=== PATIENT | female | born 1985 | race Caucasian/White ===

== ENCOUNTER 2016-11-02 04:43 | Emergency (ER) | payer SELFPAY ==
[~2016-11-02] VITALS: Ht 182.9 cm; Wt 80.0 kg
[~2016-11-02 04:43] MED LIST: CYCL-36 PO; IBUP800 PO; PRED50TA PO
[2016-11-02 04:49] VITALS: BP 141/65; PULSE 68; RESP 18; TEMP 99.3; O2SAT 96
[2016-11-02] MEDS ORDERED: CEPHALEXIN MONOHYDRATE 500 MG CAP PO ONE (07:45)
[2016-11-02] MEDS ORDERED: SULFAMETHOXAZOLE-TRIMETHOPRIM DS 800-160 MG TAB PO ONE (07:45)
[2016-11-02] MEDS ORDERED: KETOROLAC TROMETHAMINE 30 MG/ML (IVP) VIAL IV PUSH ONE (07:45)
[2016-11-02] MEDS ORDERED: SODIUM CHLOR 0.9% 1000 ML INJ 1,000 ML IV ONE (07:45)
--- NOTE | 2016-11-02 08:25 | RADRPT ---
EXAM DATE/TIME: 11/02/2016 07:48 [facility] COMPARISON: No previous studies available for comparison. INDICATIONS : Left leg edema. MEDICAL HISTORY : . IV drug use. Tobacco use. Leg edema. SURGICAL HISTORY : None. ENCOUNTER: Initial ACUITY: 3 days PAIN SCORE: 8/10 LOCATION: Left leg. TECHNIQUE: Venous ultrasound of the leg was performed from the inguinal ligament to the proximal calf. Real-derian e, color Doppler and spectral tracing, compression and augmentation techniques were used. FINDINGS: There is normal compressibility of the deep venous system from the inguinal region to the proximal ca lf. No echogenic clot is seen in the lumen of the common femoral, femoral, popliteal, and posterior tibial veins. There is a normal response of the venous system to proximal and distal augmentation an d respiration. Several nonspecific prominent lymph nodes are noted in the left groin area. Small nonspecific hypoechoic area in the soft tissues of the left lateral calf the patient is having pain. This area measures approximately 7 mm and may represent either small amount of fluid or some fo ronan inflammation. CONCLUSION: 1. No evidence of DVT. 2. Nonspecific mildly prominent multiple lymph nodes in left groin area. 3. 7 mm nonspecific area of decreased density in the soft tissues along the calf in the region of lucio n. Probable focal inflammation versus a small amount of fluid. Marcelo Huitron MD on November 02, 2016 at 8:20 Board Certified Radiologist. This report was verified electronically.
[2016-11-02 08:35] LABS: AUTOMATED NEUTROPHIL # 2.9 TH/MM3 (1.8-7.7); BASOPHIL % 0.5 % (0.0-2.0); EOSINOPHIL # 0.2 TH/MM3 (0-0.4); HEMATOCRIT 34.1 % (35.0-46.0); HEMO FLAGS DIFF FINAL; LYMPH % 23.9 % (9.0-44.0); LYMPHOCYTE # 1.1 TH/MM3 (1.0-4.8); MEAN CELL VOLUME 88.4 FL (80.0-100.0); MEAN CORPUSCULAR HEMOGLOBIN 30.3 PG (27.0-34.0); MEAN CORPUSCULAR HGB CONC 34.3 % (32.0-36.0); MONO % 11.6 % (0.0-8.0); PLATELET COUNT 163 TH/MM3 (150-450); RED BLOOD COUNT 3.86 MIL/MM3 (4.00-5.30); RED CELL DISTRIBUTION WIDTH 12.3 % (11.6-17.2); WHITE BLOOD COUNT 4.8 TH/MM3 (4.0-11.0)
[2016-11-02 08:43] LABS: ANION GAP 8 MEQ/L (5-15); AST (GOT) 48 U/L (15-37); BICARBONATE 27.1 MEQ/L (21.0-32.0); BLOOD UREA NITROGEN 7 MG/DL (7-18); CHLORIDE 102 MEQ/L (98-107); GLOMERULAR FILTRATION RATE 91 ML/MIN (>89); POTASSIUM 3.1 MEQ/L (3.5-5.1); SODIUM (NA) 137 MEQ/L (136-145)
[2016-11-02 08:44] LABS: ALT (GPT) 59 U/L (10-53)
--- NOTE | 2016-11-02 08:46 | PD ---
HPI Chief Complaint: Edema Time Seen by Provider: 07:29 Travel History International Travel<30 days: No Contact w/Intl Traveler<30days: No Traveled to known affect area: No History of Present Illness HPI 31 year-old woman who presents to the emergency room complaining of swelling in her legs. She was recently in group home. She is wearing heavy work boots. She developed ulcerations and abrasions on her feet. She felt her from the work boots. At the beginning of November, October she developed more painful sores on especially her right foot and right foot swelling. She took antibiotics for a couple days before leaving group home. These improved. She's had worsening left foot pain swelling and ulcerations and then over the past several days has developed worsening left pain swelling on her calf and leg itself. No fevers or chills. No night sweats. She has a history of IV drug use last used about 3 days ago. She also complains of small pustular skin wounds scattered over other areas of her body as well including her trunk chest and upper extremities. History Past Medical History Narrative Medical Active IV drug use Tetanus Vaccination: < 5 Years Influenza Vaccination: No LMP: 10/27/2016 Menopausal: No : 0 Past Surgical History Surgical History: No Previous Surgery Social History Alcohol Use: Yes (OCC.) Tobacco Use: Yes (3/4 PPD) Allergies-Medications (Allergen,Severity, Reaction): Coded Allergies: No Known Allergies (Unverified , 12/08/15) Reported Meds & Prescriptions Reported Meds & Active Scripts Active No Active Prescriptions or Reported Medications Review of Systems Except as stated in HPI: all other systems reviewed are Neg Physical Exam Narrative GENERAL: Well-appearing 31 year-old woman, appears uncomfortable, nontoxic. SKIN: Focused skin assessment warm/dry. Scattered pustular lesions a small rims of erythema. On the legs are several areas especially in the lateral foot larger areas of ulceration about a centimeter or so with some minimal surrounding erythema. There is more generalized erythema to the foot as well with some tenderness and swelling. This tenderness extends up into the calf. There is minimal swelling but there is some appreciable asymmetry between the left and right leg. HEAD: Atraumatic. Normocephalic. EYES: Pupils equal and round. No scleral icterus. No injection or drainage. ENT: No nasal bleeding or discharge. Mucous membranes pink and moist. NECK: Trachea midline. No JVD. CARDIOVASCULAR: Regular rate and rhythm. No murmur. RESPIRATORY: No accessory muscle use. Clear to auscultation. Breath sounds equal bilaterally. GASTROINTESTINAL: Abdomen soft, non-tender, nondistended. Hepatic and splenic margins not palpable. MUSCULOSKELETAL: No obvious deformities. Some edema to the left leg as noted above. NEUROLOGICAL: Awake and alert. No obvious cranial nerve deficits. Motor grossly within normal limits. Normal speech. Data Data Last Documented VS Vital Signs Date Time Temp Pulse Resp B/P (MAP) Pulse Ox O2 Delivery O2 Flow Rate FiO2 11/02/16 04:49 99.3 68 18 141/65 (90) 96 Orders Orders Complete Blood Count With Diff (11/02/16 07:37) Comprehensive Metabolic Panel (11/02/16 07:37) Iv Access Insert/Monitor (11/02/16 07:37) Blood Culture (11/02/16 07:37) Us Leg Venous Doppler (11/02/16 ) Cephalexin (Keflex) (11/02/16 07:45) Sulfamet-Trimeth Ds 800-160 Mg (Bactrim (11/02/16 07:45) Ketorolac Inj (Toradol Inj) (11/02/16 07:45) Sodium Chlor 0.9% 1000 Ml Inj (Ns 1000 M (11/02/16 07:45) Labs Laboratory Tests Test 11/02/16 06:52 11/02/16 07:55 Blood Urea Nitrogen 7 MG/DL Creatinine 0.75 MG/DL Random Glucose 130 MG/DL Total Protein 7.2 GM/DL Albumin 3.6 GM/DL Calcium Level 8.6 MG/DL Alkaline Phosphatase 79 U/L Aspartate Amino Transf (AST/SGOT) 48 U/L Alanine Aminotransferase (ALT/SGPT) 59 U/L Total Bilirubin 0.8 MG/DL Sodium Level 137 MEQ/L Potassium Level 3.1 MEQ/L Chloride Level 102 MEQ/L Carbon Dioxide Level 27.1 MEQ/L Anion Gap 8 MEQ/L Estimat Glomerular Filtration Rate 91 ML/MIN White Blood Count 4.8 TH/MM3 Red Blood Count 3.86 MIL/MM3 Hemoglobin 11.7 GM/DL Hematocrit 34.1 % Mean Corpuscular Volume 88.4 FL Mean Corpuscular Hemoglobin 30.3 PG Mean Corpuscular Hemoglobin Concent 34.3 % Red Cell Distribution Width 12.3 % Platelet Count 163 TH/MM3 Mean Platelet Volume 7.7 FL Neutrophils (%) (Auto) 60.0 % Lymphocytes (%) (Auto) 23.9 % Monocytes (%) (Auto) 11.6 % Eosinophils (%) (Auto) 4.0 % Basophils (%) (Auto) 0.5 % Neutrophils # (Auto) 2.9 TH/MM3 Lymphocytes # (Auto) 1.1 TH/MM3 Monocytes # (Auto) 0.6 TH/MM3 Eosinophils # (Auto) 0.2 TH/MM3 Basophils # (Auto) 0.0 TH/MM3 CBC Comment DIFF FINAL Differential Comment MDM Medical Decision Making Medical Screen Exam Complete: Yes Emergency Medical Condition: Yes Interpretation(s) LABS: CBC is unremarkable. CMP is remarkable for mildly elevated AST and ALT Ultrasound of the left lower extremity: Negative for DVT. Prominent lymph nodes soft tissue swelling. Differential Diagnosis Infection, DVT, sialitis, systemic infection or bacteremia, other Narrative Course Medical decision making To 31 year-old woman presents emergent [place] edema and swelling in her leg. She looks otherwise well. Is mostly on the left leg at this point. She has several small skin wounds. I think she probably has a superficial skin infection and may be colonized with MRSA. I don't think that she has evidence of systemic bacteremia or endocarditis. She is a high risk with active IV drug use. We'll check blood cultures, labs, check an ultrasound to rule out DVT, and treat with antibiotics and outpatient follow-up. Diagnosis Primary Impression: Left leg cellulitis Additional Instructions: Take antibiotics as prescribed. Keep leg elevated above your heart to reduce swelling and inflammation. Return emergent arm for any worsening pain redness swelling fevers or any other new or worsening symptoms. Med/Other Pt SpecificInfo: Prescription(s) given Scripts Sulfamethoxazole-Trimethoprim (Bactrim DS) 800-160 Mg Tab 1 TAB PO BID for Infection, #20 TAB 0 Refills Prov: Liam Duffy MD 11/02/16 Cephalexin (Keflex) 500 Mg Capsule 500 MG PO TID for Infection for 10 Days, CAP 0 Refills Prov: Liam Duffy MD 11/02/16 Naproxen (Naprosyn) 500 Mg Tab 500 MG PO BID Y for PAIN SCALE 1 TO 10, #20 TAB 0 Refills Prov: Liam Duffy MD 11/02/16 Disposition: 01 DISCHARGE HOME Condition: Stable Liam Duffy MD Nov 02, 2016 08:46
[2016-11-02 08:47] LABS: ALKALINE PHOSPHATASE 79 U/L (45-117); TOTAL BILIRUBIN ADULT 0.8 MG/DL (0.2-1.0)
[2016-11-02] MEDS ORDERED: CEPH-460 PO (09:21)
[2016-11-02] MEDS ORDERED: NAPR500 PO (09:21)
[2016-11-02] MEDS ORDERED: BACT800T5 PO (09:21)
== END 2016-11-02 09:35 | disposition home or self-care (01) ==
LOC: NEPC 04:43
DX: L03.116 Cellulitis of left lower limb (principal)
CPT/HCPCS: 80053; 85025; 87040; 93971; 96361; 96374; 99284; J1885; J7030

== ENCOUNTER 2016-11-24 04:05 | Emergency (ER) | payer SELFPAY ==
[~2016-11-24] VITALS: Ht 182.9 cm; Wt 75.0 kg
[~2016-11-24 04:05] MED LIST changes: +BACT800T5 PO; +CEPH-460 PO; -CYCL-36 PO; -IBUP800 PO; +NAPR500 PO; -PRED50TA PO
[2016-11-24 04:08] VITALS: BP 147/78; PULSE 61; RESP 16; TEMP 98.6; O2SAT 99
--- NOTE | 2016-11-24 05:03 | PD ---
HPI Chief Complaint: Chest Pain Time Seen by Provider: 04:15 Travel History International Travel<30 days: No Contact w/Intl Traveler<30days: No Traveled to known affect area: No History of Present Illness HPI This is a 31-year-old female who has a history of IV drug use who presents to the emergency department with 2 weeks of left-sided chest pain, intermittent, worse with deep breaths, sharp and stabbing associated with some shortness of breath. She denies any fevers or chills. Her had endocarditis and they share needles and she is worried she may have it to. She has had a cough productive with black sputum. PFSH Past Medical History Cerebrovascular Accident: No Diminished Hearing: No Integumentary: Yes (RASH TODAY.) Immunizations Current: Yes Myocardial Infarction: No Tetanus Vaccination: Unknown Influenza Vaccination: No ?: Unknown LMP: 10/12/16 Menopausal: No : 0 Social History Alcohol Use: Yes (OCC.) Tobacco Use: Yes (3/ PPD) Substance Use: Yes (dilaudid IV drug use) Allergies-Medications (Allergen,Severity, Reaction): Coded Allergies: No Known Allergies (Unverified , 11/24/16) Reported Meds & Prescriptions Reported Meds & Active Scripts Active Bactrim DS (Sulfamethoxazole-Trimethoprim) 800-160 Mg Tab 1 Tab PO BID Keflex (Cephalexin) 500 Mg Capsule 500 Mg PO TID 10 Days Naprosyn (Naproxen) 500 Mg Tab 500 Mg PO BID PRN Review of Systems Except as stated in HPI: all other systems reviewed are Neg Physical Exam Narrative GENERAL:Well appearing, no acute distress SKIN: Focused skin assessment warm and dry. HEAD: Atraumatic. Normocephalic. EYES: Pupils equal and round. No injection or drainage. ENT: Moist mucous membranes NECK: Trachea midline. CARDIOVASCULAR: Regular rate and rhythm. No murmur appreciated. RESPIRATORY: Clear to auscultation. Breath sounds equal bilaterally. GASTROINTESTINAL: Abdomen soft, non-tender, nondistended. MUSCULOSKELETAL: No obvious deformities. NEUROLOGICAL: Awake and alert. No obvious cranial nerve deficits. Moving all extremities. PSYCHIATRIC: Appropriate mood and affect; insight and judgment normal. Data Data Last Documented VS Vital Signs Date Time Temp Pulse Resp B/P (MAP) Pulse Ox O2 Delivery O2 Flow Rate FiO2 11/24/16 04:08 98.6 61 16 147/78 (101) 99 Orders Orders Complete Blood Count With Diff (11/24/16 04:45) Comprehensive Metabolic Panel (11/24/16 04:45) ^ Insert Iv (11/24/16 04:45) Lactic Acid (11/24/16 04:45) Chest, Single Ap (11/24/16 ) Ed Urine Pregnancytest Poc (11/24/16 04:45) Troponin I (11/24/16 04:46) Electrocardiogram (11/24/16 ) Blood Culture (11/24/16 05:06) C-Reactive Protein (Crp) (11/24/16 05:41) Westergren Sedimentation Rate (11/24/16 05:41) Ct Pulmonary Angiogram (11/24/16 ) Iohexol 350 Inj (Omnipaque 350 Inj) (11/24/16 05:59) Labs Laboratory Tests Test 11/24/16 04:50 White Blood Count 4.5 TH/MM3 Red Blood Count 4.11 MIL/MM3 Hemoglobin 11.9 GM/DL Hematocrit 36.1 % Mean Corpuscular Volume 87.6 FL Mean Corpuscular Hemoglobin 29.0 PG Mean Corpuscular Hemoglobin Concent 33.1 % Red Cell Distribution Width 12.7 % Platelet Count 169 TH/MM3 Mean Platelet Volume 7.4 FL Neutrophils (%) (Auto) 49.2 % Lymphocytes (%) (Auto) 33.4 % Monocytes (%) (Auto) 8.4 % Eosinophils (%) (Auto) 8.4 % Basophils (%) (Auto) 0.6 % Neutrophils # (Auto) 2.2 TH/MM3 Lymphocytes # (Auto) 1.5 TH/MM3 Monocytes # (Auto) 0.4 TH/MM3 Eosinophils # (Auto) 0.4 TH/MM3 Basophils # (Auto) 0.0 TH/MM3 CBC Comment DIFF FINAL Differential Comment Blood Urea Nitrogen 9 MG/DL Creatinine 0.77 MG/DL Random Glucose 81 MG/DL Total Protein 6.9 GM/DL Albumin 3.6 GM/DL Calcium Level 8.7 MG/DL Alkaline Phosphatase 86 U/L Aspartate Amino Transf (AST/SGOT) 68 U/L Alanine Aminotransferase (ALT/SGPT) 75 U/L Total Bilirubin 0.6 MG/DL Sodium Level 138 MEQ/L Potassium Level 3.3 MEQ/L Chloride Level 105 MEQ/L Carbon Dioxide Level 24.9 MEQ/L Anion Gap 8 MEQ/L Estimat Glomerular Filtration Rate 89 ML/MIN Lactic Acid Level 0.9 mmol/L Troponin I LESS THAN 0.02 NG/ML C-Reactive Protein LESS THAN 0.29 MG/DL MDM Medical Decision Making Medical Screen Exam Complete: Yes Emergency Medical Condition: Yes Medical Record Reviewed: Yes (blood cultures from 11/02 were negative) Interpretation(s) afebrile, no tachycardia, mild hypertension Differential Diagnosis Endocarditis, pneumonia, bronchitis, pulmonary embolism Narrative Course This is a 31-year-old female who uses IV drugs who presents to the emergency department with left-sided pleuritic chest pain. She is not having any fevers or chills. She is afebrile here and has normal vital signs. Her CRP is reassuring. She has no leukocytosis. Labs otherwise were unremarkable. X-ray and CT of the chest were unremarkable. I have a very low suspicion for endocarditis in this patient and I think she is safe for discharge. She guarantees me that she gave us a reliable phone number and we will call her with her culture results. I strictly advised her that if she develops any new symptoms like fevers or chills that she should return to the emergency department. Diagnosis Primary Impression: Atypical chest pain Patient Instructions: General Instructions Additional Instructions: If you develop fevers, chills, severe chest pain, shortness of breath, sweating , lightheadedness, dizziness or difficulty breathing return to the emergency department immediately. Med/Other Pt SpecificInfo: No Change to Meds Disposition: 01 DISCHARGE HOME Condition: Stable Mónica Tapia MD Nov 24, 2016 05:03
[2016-11-24 05:24] LABS: AUTOMATED NEUTROPHIL # 2.2 TH/MM3 (1.8-7.7); BASOPHIL % 0.6 % (0.0-2.0); EOSINOPHIL # 0.4 TH/MM3 (0-0.4); EOSINOPHIL % 8.4 % (0.0-4.0); HEMATOCRIT 36.1 % (35.0-46.0); HEMO FLAGS DIFF FINAL; LYMPH % 33.4 % (9.0-44.0); LYMPHOCYTE # 1.5 TH/MM3 (1.0-4.8); MEAN CELL VOLUME 87.6 FL (80.0-100.0); MEAN CORPUSCULAR HGB CONC 33.1 % (32.0-36.0); MONO % 8.4 % (0.0-8.0); NEUT % 49.2 % (16.0-70.0); PLATELET COUNT 169 TH/MM3 (150-450); RED BLOOD COUNT 4.11 MIL/MM3 (4.00-5.30); RED CELL DISTRIBUTION WIDTH 12.7 % (11.6-17.2); WHITE BLOOD COUNT 4.5 TH/MM3 (4.0-11.0)
--- NOTE | 2016-11-24 05:33 | RADRPT ---
EXAM DATE/TIME: 11/24/2016 05:01 [facility] COMPARISON: No previous studies available for comparison. INDICATIONS : Chest pain. MEDICAL HISTORY : IV Drug use SURGICAL HISTORY : None. ENCOUNTER: Initial ACUITY: 1 day PAIN SCORE: 4/10 LOCATION: Bilateral chest FINDINGS: A single view of the chest demonstrates the lungs to be symmetrically aerated without evidence of mas s, infiltrate or effusion. The cardiomediastinal contours are unremarkable. Osseous structures are intact. CONCLUSION: No acute cardiopulmonary process. Thanh Fofana MD on November 24, 2016 at 5:31 Board Certified Radiologist. This report was verified electronically.
[2016-11-24] MEDS ORDERED: IOHEXOL 350 MG/ML 10 ML VIAL (for RAD DIAG) IVCONTRAST ONE (05:59)
[2016-11-24 06:02] LABS: ALT (GPT) 75 U/L (10-53); ANION GAP 8 MEQ/L (5-15); AST (GOT) 68 U/L (15-37); BICARBONATE 24.9 MEQ/L (21.0-32.0); BLOOD UREA NITROGEN 9 MG/DL (7-18); CHLORIDE 105 MEQ/L (98-107); GLOMERULAR FILTRATION RATE 89 ML/MIN (>89); POTASSIUM 3.3 MEQ/L (3.5-5.1); SODIUM (NA) 138 MEQ/L (136-145)
[2016-11-24 06:05] LABS: ALKALINE PHOSPHATASE 86 U/L (45-117); TOTAL BILIRUBIN ADULT 0.6 MG/DL (0.2-1.0)
--- NOTE | 2016-11-24 06:43 | RADRPT ---
EXAM DATE/TIME: 11/24/2016 05:56 [facility] COMPARISON: No previous studies available for comparison. INDICATIONS : Chest pain; rule out pulmonary embolus. IV CONTRAST: 79 cc Omnipaque 350 (iohexol) IV RADIATION DOSE: 22.33 CTDIvol (mGy) MEDICAL HISTORY : IV drug abuse SURGICAL HISTORY : None. ENCOUNTER: Initial ACUITY: 1 day PAIN SCALE: 5/10 LOCATION: chest TECHNIQUE: Volumetric scanning of the chest was performed using a pulmonary embolism protocol MIP images were re constructed. Using automated exposure control and adjustment of the mA and/or kV according to patien t size, radiation dose was kept as low as reasonably achievable to obtain optimal diagnostic quality images. DICOM format image data is available electronically for review and comparison. Follow-up recommendations for detected pulmonary nodules are based at a minimum on nodule size and pa tient risk factors according to Fleischner Society Guidelines. FINDINGS: PULMONARY ARTERIES: No filling defects are seen in the pulmonary arteries through the segmental level. LUNGS: There is no consolidation or pneumothorax . No concerning pulmonary nodule is visualized. PLEURAE: There is no pleural thickening or pleural effusion. MEDIASTINUM: There is good visualization of the great vessels of the middle mediastinum. No evidence of mediastin al or hilar adenopathy/mass. MUSCULOSKELETAL: Within normal limits for patient age. MISCELLANEOUS: The visualized upper abdominal organs demonstrate no acute abnormality. The spleen is prominent measu ring 15.3 cm in greatest AP dimension CONCLUSION: 1. No acute infiltrate or pulmonary embolus to explain current clinical symptoms. 2. Splenomegaly. Thanh Fofana MD on November 24, 2016 at 6:40 Board Certified Radiologist. This report was verified electronically.
--- NOTE | 2016-11-24 12:46 | EKG ---
Date Performed: 11/24/2016 Time Performed: 04:48:17 PTAGE: 31 years EKG: Sinus rhythm INCOMPLETE RIGHT BUNDLE BRANCH BLOCK BORDERLINE ECG NO PREVIOUS TRACING DOCTOR: Morgan Benavidez Interpretating Date/Time 11/24/2016 12:45:26
== END 2016-11-24 07:43 | disposition home or self-care (01) ==
LOC: NEPC 04:05
DX: R07.89 Other chest pain (principal); R21 Rash and other nonspecific skin eruption; R06.02 Shortness of breath; F17.210 Nicotine dependence, cigarettes, uncomplicated; I45.10 Unspecified right bundle-branch block; R05 Cough
CPT/HCPCS: 71010; 71275; 80053; 83605; 84484; 84703; 85025; 85652; 86140; 87040; 93005; 99285; Q9967

== ENCOUNTER 2017-03-14 05:07 | Emergency (ER) | payer SELFPAY ==
[~2017-03-14] VITALS: Ht 182.9 cm; Wt 82.0 kg
[2017-03-14 05:09] VITALS: BP 155/88; PULSE 83; RESP 16; TEMP 98.7; O2SAT 98
--- NOTE | 2017-03-14 05:23 | PD ---
HPI Chief Complaint: Cold / Flu Symptoms Time Seen by Provider: 05:22 Travel History International Travel<30 days: No Contact w/Intl Traveler<30days: No Traveled to known affect area: No History of Present Illness HPI 32-year-old female presents to the emergency department for evaluation of cough , chest congestion, body aches, sore throat, fever, chills worsening over last 4 days. Patient denies any nausea or vomiting. No diarrhea. She has been taking ibuprofen and [id number] antitussives with minimal relief. Denies any significant chest pain. No abdominal pain. She has no other symptoms reported this time. [facility] Past Medical History Medical History: Denies Significant Hx Cerebrovascular Accident: No Diminished Hearing: No Integumentary: Yes (RASH TODAY.) Immunizations Current: Yes Myocardial Infarction: No Menopausal: No : 0 Social History Alcohol Use: Yes (OCC.) Tobacco Use: Yes (/ PPD) Substance Use: Yes (dilaudid IV drug use) Allergies-Medications (Allergen,Severity, Reaction): Coded Allergies: No Known Allergies (Unverified Adverse Reaction, Unknown, 03/14/17) Reported Meds & Prescriptions Reported Meds & Active Scripts Active Tessalon Perles (Benzonatate) 100 Mg Cap 200 Mg PO TID PRN Proair Hfa 8.5 GM Inh (Albuterol Sulfate) 90 Mcg/Act Aer 2 Puff INH Q4HR PRN 108 mcg/actuation Prednisone 50 Mg Tab 50 Mg PO DAILY 5 Days Review of Systems Except as stated in HPI: all other systems reviewed are Neg Physical Exam Narrative GENERAL: A nourished female patient in no acute distress. SKIN: Focused skin assessment warm/dry. HEAD: Atraumatic. Normocephalic. EYES: Pupils equal and round. No scleral icterus. No injection or drainage. ENT: No nasal bleeding or discharge. Mucous membranes pink and moist. Nasal turbinates are inflamed. Drinks is erythematous without exudate NECK: Trachea midline. No JVD. CARDIOVASCULAR: Regular rate and rhythm. No murmur appreciated. RESPIRATORY: No accessory muscle use. Coarse but clear to cough, to auscultation. Breath sounds equal bilaterally. GASTROINTESTINAL: Abdomen soft, non-tender, nondistended. Hepatic and splenic margins not palpable. MUSCULOSKELETAL: No obvious deformities. No clubbing. No cyanosis. No edema. NEUROLOGICAL: Awake and alert. No obvious cranial nerve deficits. Motor grossly within normal limits. Normal speech. PSYCHIATRIC: Appropriate mood and affect; insight and judgment normal. Data Data Last Documented VS Vital Signs Date Time Temp Pulse Resp B/P (MAP) Pulse Ox O2 Delivery O2 Flow Rate FiO2 03/14/17 06:01 03/14/17 05:46 98 21 03/14/17 05:09 98.7 83 16 Room Air Orders Orders Influenzae A/B Antigen (03/14/17 05:23) Group A Rapid Strep Screen (03/14/17 05:33) Dexamethasone Inj (Decadron Inj) (03/14/17 05:45) Albuterol-Ipratropium Neb (Duoneb Neb) (03/14/17 05:45) Strep Culture (Group A) (03/14/17 05:30) Ed Discharge Order (03/14/17 05:58) MDM Medical Decision Making Medical Screen Exam Complete: Yes Emergency Medical Condition: Yes Medical Record Reviewed: Yes Differential Diagnosis Influenza versus pneumonia versus bronchitis versus common cold Narrative Course 32-year-old female presents to emergency department for evaluation of flulike symptoms 4 days. Influenza screen is positive for influenza B. Patient is counseled on symptom management. She is encouraged follow-up with primary care provider return immediately with any acute worsening symptoms. Diagnosis Primary Impression: Influenza B Referrals: Primary Care Physician Patient Instructions: General Instructions, Influenza (ED) Departure Forms: Tests/Procedures, Work Release Enter return to work date: Mar 17, 2017 Additional Instructions: Rest Maintain adequate oral hydration Follow-up the primary care provider Return immediately with any acute worsening symptoms Med/Other Pt SpecificInfo: Prescription(s) given Scripts Benzonatate (Tessalon Perles) 100 Mg Cap 200 MG PO TID Y for COUGH, #20 CAP 0 Refills Prov: Nathalie Jovel 03/14/17 Albuterol 8.5 GM Inh (Proair Hfa 8.5 GM Inh) 90 Mcg/Act Aer 2 PUFF INH Q4HR Y for SHORTNESS OF BREATH, #1 INHALER 0 Refills 108 mcg/actuation Prov: Nathalie Jovel 03/14/17 Prednisone (Prednisone) 50 Mg Tab 50 MG PO DAILY for 5 Days, #5 TAB 0 Refills Prov: Nathalie Jovel 03/14/17 Disposition: 01 DISCHARGE HOME Condition: Stable Nathalie Jovel Mar 14, 2017 05:23
[2017-03-14] MEDS ORDERED: RESP: ALBUTEROL 2.5 MG/IPRATROPIUM 0.5 MG NEB (SCH) NEB ONE (05:45)
[2017-03-14] MEDS ORDERED: DEXAMETHASONE SOD PHOS 4 MG/ML VIAL IM ONE (05:45)
[2017-03-14 05:46] VITALS: O2SAT 98
[2017-03-14] MEDS ORDERED: BENZ100 PO (06:00)
[2017-03-14] MEDS ORDERED: PRED50 PO (06:00)
[2017-03-14] MEDS ORDERED: ALBUAER3 INH (06:00)
== END 2017-03-14 06:06 | disposition home or self-care (01) ==
LOC: NEPD 05:07
DX: J10.1 Influenza due to other identified influenza virus with other respiratory manifestations (principal); F17.200 Nicotine dependence, unspecified, uncomplicated; F11.90 Opioid use, unspecified, uncomplicated
CPT/HCPCS: 87081; 87804; 87880; 94664; 96372; 99284; J1100

== ENCOUNTER 2017-04-11 04:55 | Inpatient (IN) | payer SELFPAY ==
[~2017-04-11] VITALS: Ht 182.9 cm; Wt 75.0 kg
[2017-04-11] VITALS (16 sets, daily range): BP systolic 88–119; BP diastolic 46–73; PULSE 66–142; RESP 16–22; TEMP 97.7–102.5; O2SAT 95–100
[~2017-04-11 04:55] MED LIST changes: +ALBUAER3 INH; -BACT800T5 PO; +BENZ100 PO; -CEPH-460 PO; -NAPR500 PO; +PRED50 PO
[2017-04-11] MEDS ORDERED: ONDANSETRON HCL 4 MG/2 ML VIAL IV PUSH ONE (05:00)
[2017-04-11] MEDS ORDERED: LORazepam 2 MG/ML VIAL IV PUSH ONE (05:00)
[2017-04-11] MEDS ORDERED: SODIUM CHLOR 0.9% 1000 ML INJ 1,000 ML IV ONE ×2 (05:00)
[2017-04-11] MEDS ORDERED: SODIUM CHLOR 0.9% 1000 ML INJ 400 ML IV ONE (05:00)
--- NOTE | 2017-04-11 05:15 | PD ---
HPI Chief Complaint: Abdominal Pain Time Seen by Provider: 05:00 Travel History International Travel<30 days: No Contact w/Intl Traveler<30days: No Traveled to known affect area: No History of Present Illness HPI 32-year-old female history of IV drug abuse presents emergency department for evaluation of back pain and fever as well as nausea and vomiting. The patient was here with her fikemal was also an IV drug abuser who has a high suspicion of endocarditis, she was here visiting him and was lying on the floor retching and her giovanni's attending physician insisted that she signing to be seen. I am being roomed in the emergency department she is complaining of back pain in the high lumbar low thoracic region. She is actively vomiting on arrival limiting her history, she does appear quite uncomfortable and thin. After initial stabilization with fluids and Ativan the patient states that her chief complaint is back pain, no abdominal pain no chest pain no shortness of breath. States symptoms are severe, contacts as above, associated signs symptoms as above, gradually worsening over the past few days. PFSH Past Medical History Medical History: Denies Significant Hx Cerebrovascular Accident: No Diminished Hearing: No Integumentary: Yes (RASH TODAY.) Immunizations Current: Yes Myocardial Infarction: No ?: Not LMP: mar 27 2017 Menopausal: No : 0 Past Surgical History Surgical History: No Previous Surgery Social History Alcohol Use: Yes (OCC.) Tobacco Use: Yes (/ PPD) Substance Use: No (dilaudid IV drug use, cocaine) Allergies-Medications (Allergen,Severity, Reaction): Coded Allergies: No Known Allergies (Unverified Allergy, Unknown, 04/11/17) Reported Meds & Prescriptions Reported Meds & Active Scripts Active No Active Prescriptions or Reported Medications Review of Systems Except as stated in HPI: all other systems reviewed are Neg Physical Exam Narrative GENERAL: Well-developed, thin toxic appearance appears quite uncomfortable. SKIN: Focused skin assessment warm/dry. Multiple track vergara, hard calcified lesions over the upper extremities, no Osler's nodes no splinter hemorrhages seen. HEAD: Atraumatic. Normocephalic. EYES: Pupils equal and round. No scleral icterus. No injection or drainage. ENT: No nasal bleeding or discharge. Mucous membranes pink and moist. NECK: Trachea midline. No JVD. CARDIOVASCULAR: Regular rate and rhythm. No murmur appreciated. No murmurs no gallops no rubs. RESPIRATORY: No accessory muscle use. Clear to auscultation. Breath sounds equal bilaterally. GASTROINTESTINAL: Abdomen soft, non-tender, nondistended. Hepatic and splenic margins not palpable. MUSCULOSKELETAL: No obvious deformities. No clubbing. No cyanosis. No edema. There is some midline tenderness in the low thoracic and high lumbar region. Pulses motor and sensory intact distally in all 4 extremities, extremities are atraumatic NEUROLOGICAL: Awake and alert. No obvious cranial nerve deficits. Motor grossly within normal limits. Normal speech. PSYCHIATRIC: Appropriate mood and affect; insight and judgment normal. Data Data Last Documented VS Vital Signs Date Time Temp Pulse Resp B/P (MAP) Pulse Ox O2 Delivery O2 Flow Rate FiO2 04/11/17 06:41 102.5 04/11/17 06:13 98 Room Air 04/11/17 06:12 99 16 Orders Orders Sepsis Workup Initiated (04/11/17 ) Complete Blood Count With Diff (04/11/17 05:00) Comprehensive Metabolic Panel (04/11/17 05:00) Beta Hcg (Quant/Titer) (04/11/17 05:00) Prothrombin Time / Inr (Pt) (04/11/17 05:00) Act Partial Throm Time (Ptt) (04/11/17 05:00) Lactic Acid Sepsis Protocol (04/11/17 05:00) Magnesium (Mg) (04/11/17 05:00) Phosphorus (Po4) (04/11/17 05:00) Lipase (04/11/17 05:00) Troponin I (04/11/17 05:00) Urinalysis - C+S If Indicated (04/11/17 05:00) Blood Culture (04/11/17 05:00) Chest, Single Ap (04/11/17 05:00) Blood Glucose (04/11/17 05:00) Ecg Monitoring (04/11/17 05:00) Iv Access Insert/Monitor (04/11/17 05:00) Oximetry (04/11/17 05:00) Oxygen Administration (04/11/17 05:00) Sodium Chlor 0.9% 1000 Ml Inj (Ns 1000 M (04/11/17 05:00) Sodium Chlor 0.9% 1000 Ml Inj (Ns 1000 M (04/11/17 05:00) Sodium Chlor 0.9% 1000 Ml Inj (Ns 1000 M (04/11/17 05:00) Ondansetron Inj (Zofran Inj) (04/11/17 05:00) Lorazepam Inj (Ativan Inj) (04/11/17 05:00) Piperacil-Tazo 4.5 Gm Premix (Zosyn 4.5 (04/11/17 07:00) Mri C Spine W&W/O Contrast (04/11/17 ) Mri L Spine W&W/O Contrast (04/11/17 ) Mri T Spine W & W/O Contrast (04/11/17 ) Urine Culture (04/11/17 06:05) Vancomycin 1 Gm/200 Ml Inj (Vancomycin 1 (04/11/17 08:00) Labs Laboratory Tests Test 04/11/17 05:07 04/11/17 06:05 White Blood Count 3.5 TH/MM3 Red Blood Count 4.21 MIL/MM3 Hemoglobin 12.5 GM/DL Hematocrit 36.4 % Mean Corpuscular Volume 86.6 FL Mean Corpuscular Hemoglobin 29.7 PG Mean Corpuscular Hemoglobin Concent 34.3 % Red Cell Distribution Width 12.3 % Platelet Count 169 TH/MM3 Mean Platelet Volume 7.7 FL Neutrophils (%) (Auto) 90.2 % Lymphocytes (%) (Auto) 8.8 % Monocytes (%) (Auto) 0.4 % Eosinophils (%) (Auto) 0.4 % Basophils (%) (Auto) 0.2 % Neutrophils # (Auto) 3.1 TH/MM3 Lymphocytes # (Auto) 0.3 TH/MM3 Monocytes # (Auto) 0.0 TH/MM3 Eosinophils # (Auto) 0.0 TH/MM3 Basophils # (Auto) 0.0 TH/MM3 CBC Comment DIFF FINAL Differential Comment Prothrombin Time 10.9 SEC Prothromb Time International Ratio 1.1 RATIO Activated Partial Thromboplast Time 23.8 SEC Blood Urea Nitrogen 9 MG/DL Creatinine 1.07 MG/DL Random Glucose 77 MG/DL Total Protein 7.1 GM/DL Albumin 3.5 GM/DL Calcium Level 8.9 MG/DL Phosphorus Level 1.1 MG/DL Magnesium Level 1.5 MG/DL Alkaline Phosphatase 89 U/L Aspartate Amino Transf (AST/SGOT) 25 U/L Alanine Aminotransferase (ALT/SGPT) 11 U/L Total Bilirubin 1.0 MG/DL Sodium Level 137 MEQ/L Potassium Level 3.0 MEQ/L Chloride Level 104 MEQ/L Carbon Dioxide Level 25.1 MEQ/L Anion Gap 8 MEQ/L Estimat Glomerular Filtration Rate 60 ML/MIN Lactic Acid Level 2.3 mmol/L Troponin I LESS THAN 0.02 NG/ML Lipase 50 U/L Human Chorionic Gonadotropin, Quant LESS THAN 1 MIU/ML Urine Color YELLOW Urine Turbidity HAZY Urine pH 5.5 Urine Specific [place] 1.009 Urine Protein TRACE mg/dL Urine Glucose (UA) NEG mg/dL Urine Ketones NEG mg/dL Urine Occult Blood NEG Urine Nitrite NEG Urine Bilirubin NEG Urine Urobilinogen LESS THAN 2.0 MG/DL Urine Leukocyte Esterase NEG Urine RBC 1 /hpf Urine WBC 1 /hpf Urine Squamous Epithelial Cells 3 /hpf Urine Bacteria RARE /hpf Urine Mucus FEW /lpf Microscopic Urinalysis Comment CATH-CULTURE IND MDM Medical Decision Making Medical Screen Exam Complete: Yes Emergency Medical Condition: Yes Differential Diagnosis Sepsis, epidural abscess, pneumonia, pericarditis, Narrative Course Patient room to the emergency department febrile to a T-max of 102.5 by the end of my shift, received full 30 cc/kg fluid bolus, white blood cell count less than 4000 with left shift, appear septic, suspected source of infection would be epidural abscess, started on vancomycin and Zosyn, she is starting to improve in the emergency department, patient was discussed with Dr. brink to follow-up MRI results reassess the patient for possible other sources of fever if MRI is negative and continue to workup as appropriate and disposition appropriately Scripts No Active Prescriptions or Reported Meds Lul Guevara MD Apr 11, 2017 05:15
--- NOTE | 2017-04-11 05:25 | RADRPT ---
EXAM DATE/TIME: 04/11/2017 05:08 [facility] COMPARISON: CHEST SINGLE AP, November 24, 2016, 5:01. INDICATIONS : Chest pain and vomiting. MEDICAL HISTORY : None. SURGICAL HISTORY : None. ENCOUNTER: Initial ACUITY: 1 day PAIN SCORE: Non-responsive. LOCATION: Bilateral chest FINDINGS: A single view of the chest demonstrates the lungs to be symmetrically aerated without evidence of mas s, infiltrate or effusion. The cardiomediastinal contours are unremarkable. Osseous structures are intact. CONCLUSION: No acute disease. Nehemiah Arguelles MD on April 11, 2017 at 5:23 Board Certified Radiologist. This report was verified electronically.
[2017-04-11 05:28] LABS: AUTOMATED NEUTROPHIL # 3.1 TH/MM3 (1.8-7.7); BASOPHIL % 0.2 % (0.0-2.0); EOSINOPHIL % 0.4 % (0.0-4.0); HEMATOCRIT 36.4 % (35.0-46.0); HEMOGLOBIN 12.5 GM/DL (11.6-15.3); LYMPH % 8.8 % (9.0-44.0); LYMPHOCYTE # 0.3 TH/MM3 (1.0-4.8); MEAN CELL VOLUME 86.6 FL (80.0-100.0); MEAN CORPUSCULAR HEMOGLOBIN 29.7 PG (27.0-34.0); MEAN CORPUSCULAR HGB CONC 34.3 % (32.0-36.0); MEAN PLATELET VOLUME 7.7 FL (7.0-11.0); MONO % 0.4 % (0.0-8.0); NEUT % 90.2 % (16.0-70.0); PLATELET COUNT 169 TH/MM3 (150-450); RED BLOOD COUNT 4.21 MIL/MM3 (4.00-5.30); RED CELL DISTRIBUTION WIDTH 12.3 % (11.6-17.2); WHITE BLOOD COUNT 3.5 TH/MM3 (4.0-11.0)
[2017-04-11 05:40] LABS: INTERNATIONAL NORMALIZED RATIO 1.1 RATIO; PROTHROMBIN TIME - PATIENT 10.9 SEC (9.8-11.6)
[2017-04-11 05:43] LABS: LACTIC ACID SEPSIS PROTOCOL 2.3 mmol/L (0.4-2.0)
[2017-04-11 05:48] LABS: ALBUMIN 3.5 GM/DL (3.4-5.0); AST (GOT) 25 U/L (15-37); BICARBONATE 25.1 MEQ/L (21.0-32.0); BLOOD UREA NITROGEN 9 MG/DL (7-18); CALCIUM 8.9 MG/DL (8.5-10.1); CHLORIDE 104 MEQ/L (98-107); CREATININE 1.07 MG/DL (0.50-1.00); GLOMERULAR FILTRATION RATE 60 ML/MIN (>89); GLUCOSE,RANDOM 77 MG/DL (74-106); MAGNESIUM 1.5 MG/DL (1.5-2.5); SODIUM (NA) 137 MEQ/L (136-145)
[2017-04-11 05:49] LABS: ALT (GPT) 11 U/L (10-53)
[2017-04-11 05:53] LABS: ALKALINE PHOSPHATASE 89 U/L (45-117); PHOSPHORUS 1.1 MG/DL (2.5-4.9); TOTAL PROTEIN 7.1 GM/DL (6.4-8.2); TROPONIN I LESS THAN 0.02 NG/ML (0.02-0.05)
[2017-04-11 06:26] LABS: BACTERIA, URINE RARE /hpf; BILIRUBIN, URINE NEG (NEG); BLOOD, URINE NEG (NEG); GLUCOSE,URINE NEG (NEG); KETONE, URINE NEG (NEG); MUCUS URINE FEW /lpf (OCC); NITRITE,URINE NEG (NEG); PH, URINE 5.5 (5.0-8.5); SQUAMOUS EPITHELIAL CELL URINE 3 /hpf (0-5); URINE COLOR YELLOW (YELLW/STRAW); URINE LEUKOCYTE ESTERASE NEG (NEG)
[2017-04-11] MEDS ORDERED: VANCOMYCIN INJ 1,000 MG in SODIUM CHLOR 0.9% 250 ML INJ 250 ML IV ONE (06:30)
[2017-04-11] MEDS ORDERED: PIPERACIL-TAZO 4.5 GM PREMIX 100 ML IV ONE (07:00)
[2017-04-11] MEDS ORDERED: VANCOMYCIN 1 GM/200 ML PREMIX IV ONE (08:00)
--- NOTE | 2017-04-11 09:48 | RADRPT ---
EXAM DATE/TIME: 04/11/2017 08:18 [facility] COMPARISON: No previous studies available for comparison. INDICATIONS : Abscess. MEDICAL HISTORY : None. SURGICAL HISTORY : None. ENCOUNTER: Initial ACUITY: 2 day PAIN SCORE: 5/10 LOCATION: neck TECHNIQUE: Multiplanar, multisequence MRI examination of the cervical spine was performed. FINDINGS: VERTEBRAE: Normal vertebral body height. Homogeneous marrow signal. ALIGNMENT: No evidence of subluxation. CORD: Normal configuration and signal. POST FOSSA: The cerebellar tonsils are normal in position. C2-C3: The thecal sac has a normal configuration. There is no evidence of disc herniation or spinal canal s tenosis. The neural foramina are patent bilaterally. C3-C4: The thecal sac has a normal configuration. There is no evidence of disc herniation or spinal canal s tenosis. The neural foramina are patent bilaterally. C4-C5: The thecal sac has a normal configuration. There is no evidence of disc herniation or spinal canal s tenosis. The neural foramina are patent bilaterally. C5-C6: There is mild disc space narrowing and a mild broad-based disc bulge that just touches the ventral po rtion of the cord. The anterior to posterior dimension of the central canal in the midline is 9 mm. T here is narrowing of the left lateral recess. Right lateral recess is patent. Mild narrowing of the n eural foramina bilaterally secondary to bony uncovertebral hypertrophy. C6-C7: There is mild disc space narrowing with a mild broad-based disc bulge eccentric to the left. This dumont s not abut the cord or cause central canal stenosis. Mild narrowing of the left lateral recess. Right lateral recess is patent. Bony uncovertebral hypertrophy generates mild narrowing of the left neural foramen. The right is patent. C7-T1: The thecal sac has a normal configuration. There is no evidence of disc herniation or spinal canal s tenosis. The neural foramina are patent bilaterally. CONCLUSION: 1. Degenerative disc disease at C5-C6 and C6-C7. There is mild abutment of the cord at C5-C6 without signal change in the cord to suggest edema or myelomalacia. Neural foraminal narrowing also noted. Ea ch level detailed above discussion. 2. No acute abnormality. Faheem Cervantes Jr., MD on April 11, 2017 at 9:37 Board Certified Radiologist. This report was verified electronically.
--- NOTE | 2017-04-11 09:55 | RADRPT ---
EXAM DATE/TIME: 04/11/2017 08:18 [facility] COMPARISON: No previous studies available for comparison. INDICATIONS : Abscess. MEDICAL HISTORY : None. SURGICAL HISTORY : None. ENCOUNTER: Initial ACUITY: 2 day PAIN SCORE: 5/10 LOCATION: back TECHNIQUE: Multiplanar multisequence MRI of the thoracic spine was performed. FINDINGS: VERTEBRA: Normal vertebral body height. Homogeneous marrow signal. ALIGNMENT: Normal. CORD: Normal position and configuration. T1-T2: Normal. T2-T3: The thecal sac has a normal diameter. No evidence of disc bulge or protrusion. T3-T4: The thecal sac has a normal diameter. No evidence of disc bulge or protrusion. T4-T5: The thecal sac has a normal diameter. No evidence of disc bulge or protrusion. T5-T6: The thecal sac has a normal diameter. No evidence of disc bulge or protrusion. T6-T7: The thecal sac has a normal diameter. No evidence of disc bulge or protrusion. T7-T8: The thecal sac has a normal diameter. No evidence of disc bulge or protrusion. T8-T9: The thecal sac has a normal diameter. No evidence of disc bulge or protrusion. T9-T10: The thecal sac has a normal diameter. No evidence of disc bulge or protrusion. T10-T11: The thecal sac has a normal diameter. No evidence of disc bulge or protrusion. T11-T12: Small left-sided protrusion causing mild narrowing of the left neural foramen. No canal stenosis. T12-L1: The thecal sac has a normal diameter. No evidence of disc bulge or protrusion. CONCLUSION: 1. Small left-sided protrusion at T11-12 causing mild narrowing in the left neural foramen. No canal stenosis. 2. No abscess seen. Bjorn Lozano MD on April 11, 2017 at 9:50 Board Certified Radiologist. This report was verified electronically.
--- NOTE | 2017-04-11 10:35 | PD ---
Data Data Last Documented VS Vital Signs Date Time Temp Pulse Resp B/P (MAP) Pulse Ox O2 Delivery O2 Flow Rate FiO2 04/11/17 09:56 100.1 95 16 88/46 (60) 95 Room Air 04/11/17 07:38 3.00 Orders Orders Sepsis Workup Initiated (04/11/17 ) Complete Blood Count With Diff (04/11/17 05:00) Comprehensive Metabolic Panel (04/11/17 05:00) Beta Hcg (Quant/Titer) (04/11/17 05:00) Prothrombin Time / Inr (Pt) (04/11/17 05:00) Act Partial Throm Time (Ptt) (04/11/17 05:00) Lactic Acid Sepsis Protocol (04/11/17 05:00) Magnesium (Mg) (04/11/17 05:00) Phosphorus (Po4) (04/11/17 05:00) Lipase (04/11/17 05:00) Troponin I (04/11/17 05:00) Urinalysis - C+S If Indicated (04/11/17 05:00) Blood Culture (04/11/17 05:00) Chest, Single Ap (04/11/17 05:00) Blood Glucose (04/11/17 05:00) Ecg Monitoring (04/11/17 05:00) Iv Access Insert/Monitor (04/11/17 05:00) Oximetry (04/11/17 05:00) Oxygen Administration (04/11/17 05:00) Sodium Chlor 0.9% 1000 Ml Inj (Ns 1000 M (04/11/17 05:00) Sodium Chlor 0.9% 1000 Ml Inj (Ns 1000 M (04/11/17 05:00) Sodium Chlor 0.9% 1000 Ml Inj (Ns 1000 M (04/11/17 05:00) Ondansetron Inj (Zofran Inj) (04/11/17 05:00) Lorazepam Inj (Ativan Inj) (04/11/17 05:00) Piperacil-Tazo 4.5 Gm Premix (Zosyn 4.5 (04/11/17 07:00) Mri L Spine W&W/O Contrast (04/11/17 ) Urine Culture (04/11/17 06:05) Vancomycin 1 Gm/200 Ml Inj (Vancomycin 1 (04/11/17 08:00) Influenzae A/B Antigen (04/11/17 06:59) Arterial Blood Gas (Abg) (04/11/17 ) Electrocardiogram (04/11/17 05:12) Lactic Acid (04/11/17 07:57) Mri T Spine W/O Contrast (04/11/17 ) Mri C Spine W/O Contrast (04/11/17 ) Admit Order (Ed Use Only) (04/11/17 ) Labs Laboratory Tests Test 04/11/17 05:07 04/11/17 06:05 04/11/17 07:28 04/11/17 07:50 White Blood Count 3.5 TH/MM3 Red Blood Count 4.21 MIL/MM3 Hemoglobin 12.5 GM/DL Hematocrit 36.4 % Mean Corpuscular Volume 86.6 FL Mean Corpuscular Hemoglobin 29.7 PG Mean Corpuscular Hemoglobin Concent 34.3 % Red Cell Distribution Width 12.3 % Platelet Count 169 TH/MM3 Mean Platelet Volume 7.7 FL Neutrophils (%) (Auto) 90.2 % Lymphocytes (%) (Auto) 8.8 % Monocytes (%) (Auto) 0.4 % Eosinophils (%) (Auto) 0.4 % Basophils (%) (Auto) 0.2 % Neutrophils # (Auto) 3.1 TH/MM3 Lymphocytes # (Auto) 0.3 TH/MM3 Monocytes # (Auto) 0.0 TH/MM3 Eosinophils # (Auto) 0.0 TH/MM3 Basophils # (Auto) 0.0 TH/MM3 CBC Comment DIFF FINAL Differential Comment Prothrombin Time 10.9 SEC Prothromb Time International Ratio 1.1 RATIO Activated Partial Thromboplast Time 23.8 SEC Blood Urea Nitrogen 9 MG/DL Creatinine 1.07 MG/DL Random Glucose 77 MG/DL Total Protein 7.1 GM/DL Albumin 3.5 GM/DL Calcium Level 8.9 MG/DL Phosphorus Level 1.1 MG/DL Magnesium Level 1.5 MG/DL Alkaline Phosphatase 89 U/L Aspartate Amino Transf (AST/SGOT) 25 U/L Alanine Aminotransferase (ALT/SGPT) 11 U/L Total Bilirubin 1.0 MG/DL Sodium Level 137 MEQ/L Potassium Level 3.0 MEQ/L Chloride Level 104 MEQ/L Carbon Dioxide Level 25.1 MEQ/L Anion Gap 8 MEQ/L Estimat Glomerular Filtration Rate 60 ML/MIN Lactic Acid Level 2.3 mmol/L 1.7 mmol/L Troponin I LESS THAN 0.02 NG/ML Lipase 50 U/L Human Chorionic Gonadotropin, Quant LESS THAN 1 MIU/ML Urine Color YELLOW Urine Turbidity HAZY Urine pH 5.5 Urine Specific [place] 1.009 Urine Protein TRACE mg/dL Urine Glucose (UA) NEG mg/dL Urine Ketones NEG mg/dL Urine Occult Blood NEG Urine Nitrite NEG Urine Bilirubin NEG Urine Urobilinogen LESS THAN 2.0 MG/DL Urine Leukocyte Esterase NEG Urine RBC 1 /hpf Urine WBC 1 /hpf Urine Squamous Epithelial Cells 3 /hpf Urine Bacteria RARE /hpf Urine Mucus FEW /lpf Microscopic Urinalysis Comment CATH-CULTURE IND Blood Gas Puncture Site LT RADIAL Blood Gas Patient Temperature 98.6 Blood Gas HCO3 20 mmol/L Blood Gas Base Excess -3.7 mmol/L Blood Gas Oxygen Saturation 80 % Arterial Blood pH 7.42 Arterial Blood Partial Pressure CO2 32 mmHg Arterial Blood Partial Pressure O2 47 mmHG Arterial Blood Oxygen Content 11.9 Vol % Arterial Blood Carboxyhemoglobin 2.2 % Arterial Blood Methemoglobin 0.5 % Blood Gas Hemoglobin 10.5 G/DL Blood Gas Inspired Oxygen 21 % MDM Supervised Visit with VAUGHN: Yes Narrative Course 32-year-old woman, initially evaluate by Dr. Guevara, signed out to me to follow- up on the results of MRI. MRI was limited due to the inability to use IV contrast due to patient cooperation, no definite abscess is seen. Concern for sepsis or occult infection. Patient will be admitted for further evaluation. Diagnosis Primary Impression: Sepsis Additional Impression: IV drug user Admitting Information Admitting Physician Requests: Admit Scripts No Active Prescriptions or Reported Meds Liam Duffy MD Apr 11, 2017 10:35
[2017-04-11] MEDS ORDERED: SODIUM CHLORIDE 0.9% FLUSH 10 ML FLUSH IV FLUSH PRN ×2 (10:45→11:15)
--- NOTE | 2017-04-11 10:46 | HHI.HP ---
[facility] Service Family Medicine Primary Care Physician No Primary Care Physician Admission Diagnosis Sepsis Diagnoses: International Travel<30 Days: No Contact w/Intl Traveler<30days: No Known Affected Area: No History of Present Illness Mrs. Umaña is a 32 y/o F presenting to the ED with AMS, nausea, and vomiting. 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 She was then roomed in the emergency department as she began having intractable lumbar back pain with nausea and vomiting. She states that the symptoms have been persisting for 3 days when she last used IV drugs. She admits to using an unspecified amount of cocaine as well as crushing 38 mg Dilaudid tablets and injecting them into her left arm after mixing with water. She states that she did share the needles with her . She reports the back pain is 10 out of 10 and sharp in quality. As for her nausea and vomiting she states that she has "been unable to keep anything down." She has been having intermittent nonbilious , nonbloody vomiting during this time. She endorses subjective fevers and diaphoresis without chest pain or shortness of breath. Of note during the interview and exam, patient is in an out of consciousness but is oriented to person, place, and time while awake. Due to her lethargy, she is unable to complete a full review of systems and history as documented above. (Americo Doshi MD R2) Review of Systems ROS Limitations: Clinical Condition, Intoxication, Altered Mental Status, Poor Historian Constitutional: COMPLAINS OF: Fever, DENIES: Weight gain, Weight loss, Dizziness Eyes: DENIES: Blurred vision, Double Vision Ears, nose, mouth, throat: DENIES: Hoarseness, Running Nose Respiratory: COMPLAINS OF: Shortness of breath, DENIES: Cough, Hemoptysis Cardiovascular: DENIES: Chest pain, Syncope Gastrointestinal: COMPLAINS OF: Abdominal pain, Nausea, Vomiting, DENIES: Diarrhea Genitourinary: DENIES: Dysuria Musculoskeletal: COMPLAINS OF: Muscle aches, Back pain, DENIES: Neck pain Integumentary: COMPLAINS OF: Rash Hematologic/lymphatic: DENIES: Lymphadenopathy Immunologic/allergic: DENIES: Urticaria Neurologic: COMPLAINS OF: Headache Psychiatric: DENIES: Mood changes, Hallucinations, Suicidal Ideation, Homicidal Ideation (Americo Doshi MD R2) Past Family Social History Past Medical History None reported Past Surgical History None reported (Americo Doshi MD R2) Allergies: Coded Allergies: No Known Allergies (Unverified Allergy, Unknown, 04/11/17) Family History Noncontributory, patient unable to complete due to mental status Social History Patient denies any tobacco or alcohol use. Patient endorses using Dilaudid and cocaine regularly, with the last use approximately 3 days ago. (Americo Doshi MD R2) Physical Exam Vital Signs Vital Signs Date Time Temp Pulse Resp B/P (MAP) Pulse Ox O2 Delivery O2 Flow Rate FiO2 04/11/17 09:56 100.1 95 16 88/46 (60) 95 Room Air 04/11/17 09:22 100.6 04/11/17 07:38 98 Nasal Cannula 3.00 04/11/17 07:14 99.4 99 16 116/63 (80) 96 Room Air 04/11/17 07:10 16 97 Room Air 04/11/17 07:10 16 04/11/17 06:41 102.5 04/11/17 06:13 98 Room Air 04/11/17 06:12 99 16 116/59 (78) 98 Room Air 04/11/17 05:04 20 99 Room Air 04/11/17 04:59 22 04/11/17 04:57 99.5 103 22 110/52 (71) 98 Physical Exam GENERAL: Disheveled female lying in bed with fluctuating consciousness appearing in respiratory distress. SKIN: Multiple lesions on the upper extremities consistent with IV tract vergara. Some areas are calcified/scarred and tender to palpation. No acute areas appreciated for active cellulitis. Excessive warmth and mild diaphoresis. No Janeway lesions, splinter hemorrhages, or oslers nodes appreciated. HEENT: AT, NC with EOMI. Pupils are sluggish to light stimulus. Mucus membranes are dry. Oropharynx mildly erythematous with multiple dental carries. No rhinorrhea. Trachea midline. Supple, nontender, no meningeal signs. No LAD, JVD , or thyroid abnormality appreciated. CARDIOVASCULAR: Regular rate and rhythm without murmurs, gallops, or rubs. 2+ pulses in all four extremities. RESPIRATORY: CTAB with no CRW. Minimal respiratory effort overall on 2L. No increased WOB. When awake, patient able to converse in short sentences. RR elevated. GASTROINTESTINAL: Abdomen soft, nondistended with +BS. Patient tender to mild palpation throughout the ABD. No masses appreciated. MUSCULOSKELETAL: Extremities without cyanosis. All four extremities tender to palpation without signs of acute trauma or infection. NEUROLOGICAL: Fluctuating consciousness. Oriented to PPT while awake. Patient able to move all extremities and endorses good sensation. CN 2-12 grossly intact. Laboratory Laboratory Tests Test 04/11/17 05:07 04/11/17 06:05 04/11/17 07:28 04/11/17 07:50 White Blood Count 3.5 Red Blood Count 4.21 Hemoglobin 12.5 Hematocrit 36.4 Mean Corpuscular Volume 86.6 Mean Corpuscular Hemoglobin 29.7 Mean Corpuscular Hemoglobin Concent 34.3 Red Cell Distribution Width 12.3 Platelet Count 169 Mean Platelet Volume 7.7 Neutrophils (%) (Auto) 90.2 Lymphocytes (%) (Auto) 8.8 Monocytes (%) (Auto) 0.4 Eosinophils (%) (Auto) 0.4 Basophils (%) (Auto) 0.2 Neutrophils # (Auto) 3.1 Lymphocytes # (Auto) 0.3 Monocytes # (Auto) 0.0 Eosinophils # (Auto) 0.0 Basophils # (Auto) 0.0 CBC Comment DIFF FINAL Differential Comment Prothrombin Time 10.9 Prothromb Time International Ratio 1.1 Activated Partial Thromboplast Time 23.8 Blood Urea Nitrogen 9 Creatinine 1.07 Random Glucose 77 Total Protein 7.1 Albumin 3.5 Calcium Level 8.9 Phosphorus Level 1.1 Magnesium Level 1.5 Alkaline Phosphatase 89 Aspartate Amino Transf (AST/SGOT) 25 Alanine Aminotransferase (ALT/SGPT) 11 Total Bilirubin 1.0 Sodium Level 137 Potassium Level 3.0 Chloride Level 104 Carbon Dioxide Level 25.1 Anion Gap 8 Estimat Glomerular Filtration Rate 60 Lactic Acid Level 2.3 1.7 Troponin I LESS THAN 0.02 Lipase 50 Human Chorionic Gonadotropin, Quant LESS THAN 1 Urine Color YELLOW Urine Turbidity HAZY Urine pH 5.5 Urine Specific [place] 1.009 Urine Protein TRACE Urine Glucose (UA) NEG Urine Ketones NEG Urine Occult Blood NEG Urine Nitrite NEG Urine Bilirubin NEG Urine Urobilinogen LESS THAN 2.0 Urine Leukocyte Esterase NEG Urine RBC 1 Urine WBC 1 Urine Squamous Epithelial Cells 3 Urine Bacteria RARE Urine Mucus FEW Microscopic Urinalysis Comment CATH-CULTURE IND Blood Gas Puncture Site LT RADIAL Blood Gas Patient Temperature 98.6 Blood Gas HCO3 20 Blood Gas Base Excess -3.7 Blood Gas Oxygen Saturation 80 Arterial Blood pH 7.42 Arterial Blood Partial Pressure CO2 32 Arterial Blood Partial Pressure O2 47 Arterial Blood Oxygen Content 11.9 Arterial Blood Carboxyhemoglobin 2.2 Arterial Blood Methemoglobin 0.5 Blood Gas Hemoglobin 10.5 Blood Gas Inspired Oxygen 21 Date/Time Source Procedure Growth Status 04/11/17 05:07 Blood Peripheral Aerobic Blood Culture Pending Received 04/11/17 05:07 Blood Peripheral Anaerobic Blood Culture Pending Received 04/11/17 07:00 Nasal Washing Influenza Types A,B Antigen (ZION) - Final NEGATIVE FOR FLU A AND B ANTIGEN.... Complete 04/11/17 06:05 Urine Catheterized Urine Urine Culture Pending Received (Americo Doshi MD R2) Result Diagram: 04/11/17 0507 04/11/17 0507 Imaging Last 72 hours Impressions Chest X-Ray 04/11/17 0500 Signed Impressions: Service Date/Time: Tuesday, April 11, 2017 05:08 - CONCLUSION: No acute disease. Nehemiah Arguelles MD Thoracic Spine MRI 04/11/17 0000 Signed Impressions: Service Date/Time: Tuesday, April 11, 2017 08:18 - CONCLUSION: 1. Small left-sided protrusion at T11-12 causing mild narrowing in the left neural foramen. No canal stenosis. 2. No abscess seen. Bjorn Lozaon MD Cervical Spine MRI 04/11/17 0000 Signed Impressions: Service Date/Time: Tuesday, April 11, 2017 08:18 - CONCLUSION: 1. Degenerative disc disease at C5-C6 and C6-C7. There is mild abutment of the cord at C5-C6 without signal change in the cord to suggest edema or myelomalacia. Neural foraminal narrowing also noted. Each level detailed above discussion. 2. No acute abnormality. Faheem Cervantes Jr., MD (Americo Doshi MD R2) Caprini VTE Risk Assessment Caprini VTE Risk Assessment: Mod/High Risk (score >= 2) Caprini Risk Assessment Model Point Value = 1 Point Value = 2 Point Value = 3 Point Value = 5 Age 41-60 Minor surgery BMI > 25 kg/m2 Swollen legs Varicose veins or History of unexplained or recurrent spontaneous Oral contraceptives or hormone replacement Sepsis (< 1 month) Serious lung disease, including pneumonia (< 1 month) Abnormal pulmonary function Acute myocardial infarction Congestive heart failure (< 1 month) History of inflammatory bowel disease Medical patient at bed rest Age 61-74 Arthroscopic surgery Major open surgery (> 45 min) Laparoscopic surgery (> 45 min) Malignancy Confined to bed (> 72 hours) Immobilizing plaster cast Central venous access Age >= 75 History of VTE Family history of VTE Factor V Leiden Prothrombin 22002I Lupus anticoagulant Anticardiolipin antibodies Elevated serum homocysteine Heparin-induced thrombocytopenia Other congenital or acquired thrombophilia Stroke (< 1 month) Elective arthroplasty Hip, pelvis, or leg fracture Acute spinal cord injury (< 1 month) Prophylaxis Regimen Total Risk Factor Score Risk Level Prophylaxis Regimen 0-1 Low Early ambulation 2 Moderate Order ONE of the following: *Sequential Compression Device (SCD) *Heparin 5000 units SQ BID 3-4 Higher Order ONE of the following medications: *Heparin 5000 units SQ TID *Enoxaparin/Lovenox 40 mg SQ daily (WT < 150 kg, CrCl > 30 mL/min) *Enoxaparin/Lovenox 30 mg SQ daily (WT < 150 kg, CrCl > 10-29 mL/min) *Enoxaparin/Lovenox 30 mg SQ BID (WT < 150 kg, CrCl > 30 mL/min) AND/OR *Sequential Compression Device (SCD) 5 or more Highest Order ONE of the following medications: *Heparin 5000 units SQ TID (Preferred with Epidurals) *Enoxaparin/Lovenox 40 mg SQ daily (WT < 150 kg, CrCl > 30 mL/min) *Enoxaparin/Lovenox 30 mg SQ daily (WT < 150 kg, CrCl > 10-29 mL/min) *Enoxaparin/Lovenox 30 mg SQ BID (WT < 150 kg, CrCl > 30 mL/min) AND *Sequential Compression Device (SCD) (Americo Doshi MD R2) Assessment and Plan Assessment and Plan Mrs. Umaña is a 32 y/o F presenting to the ED with AMS, nausea, vomiting, and lower back pain. Code Status FULL Discussed Condition With Dr. Duffy, JOAQUINA Babcock (Americo Doshi MD R2) Attending Attestation THIS CASE WAS DISCUSSED WITH THE RESIDENT PHYSICIANS. I HAVE REVIEWED THE RECORD AND AGREE WITH THE ABOVE NOTE AND PLAN OF CARE WAS DISCUSSED. I HAVE AUTHORIZED THE ORDER FOR ADMISSION TO AN IN-PATIENT STATUS. (Marcelo Hannon MD) Problem List: (1) Severe sepsis ICD Codes: A41.9 - Sepsis, unspecified organism; R65.20 - Severe sepsis without septic shock Status: Acute Plan: -Patient currently meets severe sepsis criteria with fever, tachycardia, tachypnea, and leukopenia. Likely source of infection as bacteremia with lactic acid of 2.3. -Lactic acid sepsis protocol in place, patient received 2 L IV fluids in the ED , additional liter of normal saline ordered as patient's blood pressure currently is 80s over 50s -No physical exam findings consistent with endocarditis at this time -Chest x-ray within normal limits -Blood cultures, urine culture pending -Vancomycin and Zosyn ordered (2) IV drug user ICD Codes: F19.90 - Other psychoactive substance use, unspecified, uncomplicated Status: Acute Plan: -Recent cocaine and IV Dilaudid use -Urine tox screen pending -Ativan as needed for agitation (3) Nausea & vomiting ICD Codes: R11.2 - Nausea with vomiting, unspecified Status: Acute Plan: -Zofran as needed for nausea/vomiting -Speech therapy consulted for swallow slowly to minimize risk for aspiration pneumonia due to AMS (4) Back pain ICD Codes: M54.9 - Dorsalgia, unspecified Status: Chronic Plan: -Cervical and thoracic MRI negative for epidural abscess -Toradol when necessary for pain (5) Hypokalemia ICD Codes: E87.6 - Hypokalemia Status: Resolved Plan: -Hypokalemic to 3.0 likely due to vomiting -Plan to replace with oral potassium chloride with passing of swallow study -Magnesium pending (6) Nutrition, metabolism, and development symptoms ICD Codes: R63.8 - Other symptoms and signs concerning food and fluid intake Status: Acute Plan: -Fluids: 2 L given in the ED, 1 L pending, continue Maintenance fluids, low threshold to increase maintenance rate -Diet: Nothing by mouth until swallow evaluation due to AMS -Electrolytes: Hypokalemia as above, continue to monitor (7) No contraindication to deep vein thrombosis (DVT) prophylaxis ICD Codes: Z78.9 - Other specified health status Status: Acute Plan: -Heparin 5000 units every 8 hours -SCDs (Americo Doshi MD R2) Physician Certification 2 Midnight Certification Type: Admission for Inpatient Services Order for Inpatient Services The services are ordered in accordance with Medicare regulations or non- Medicare payer requirements, as applicable. In the case of services not specified as inpatient-only, they are appropriately provided as inpatient services in accordance with the 2-midnight benchmark. Estimated LOS (days): 3 3 days is the estimated time the patient will need to remain in the hospital, assuming treatment plan goals are met and no additional complications. Post-Hospital Plan: Home (Americo Doshi MD R2) Problem Qualifiers (1) Nausea & vomiting: Qualified Codes: R11.2 - Nausea with vomiting, unspecified (2) Back pain: Qualified Codes: M54.5 - Low back pain Americo Doshi MD R2 Apr 11, 2017 10:46 Marcelo Hannon MD Apr 12, 2017 10:51
[2017-04-11] MEDS ORDERED: Vancomycin Consult Pharmacy 1 EA OTHER SCH (11:15)
[2017-04-11] MEDS ORDERED: RESP: ALBUTEROL 2.5 MG/IPRATROPIUM 0.5 MG NEB (PRN) NEB (11:15)
[2017-04-11] MEDS ORDERED: FLUMAZENIL 0.5 MG/5 ML VIAL IV PUSH PRN (11:15)
[2017-04-11] MEDS ORDERED: NALOXONE HCL 0.4 MG/ML AMP IV PUSH PRN (11:15)
[2017-04-11] MEDS ORDERED: LORazepam 1 MG TAB PO PRN (11:15)
[2017-04-11] MEDS ORDERED: LORazepam 2 MG/ML VIAL IV PUSH PRN ×4 (11:15)
[2017-04-11] MEDS ORDERED: VANCOMYCIN INJ 1,000 MG in SODIUM CHLOR 0.9% 250 ML INJ 250 ML IV SCH (11:15)
[2017-04-11] MEDS ORDERED: LORazepam 2 MG TAB PO PRN (11:15)
[2017-04-11] MEDS ORDERED: ONDANSETRON HCL 4 MG/2 ML VIAL IVP PRN (11:45)
[2017-04-11] MEDS ORDERED: KETOROLAC TROMETHAMINE 30 MG/ML (IVP) VIAL IV PUSH PRN (11:45)
[2017-04-11] MEDS: SODIUM CHLORIDE 0.9% FLUSH 10 ML FLUSH IV FLUSH SCH ×2 (12:00→21:05)
[2017-04-11] MEDS: SODIUM CHLOR 0.9% 1000 ML INJ 1,000 ML IV SCH (12:17)
[2017-04-11] MEDS: HEPARIN SODIUM - SQ 10,000 UNITS/ML VIAL SQ SCH ×2 (12:18→21:05)
[2017-04-11] MEDS: PIPERACIL-TAZO 4.5 GM PREMIX 100 ML IV SCH ×2 (13:41→21:05)
[2017-04-11 16:25] LABS: C-REACTIVE PROTEIN 7.9 MG/DL (0.00-0.30); MAGNESIUM 1.6 MG/DL (1.5-2.5)
[2017-04-11] MEDS: VANCOMYCIN 1,500 MG/NS 500 ML IV SCH ×2 (16:38)
--- NOTE | 2017-04-11 19:47 | EKG ---
Date Performed: 04/11/2017 Time Performed: 05:12:20 PTAGE: 32 years EKG: Sinus rhythm INCOMPLETE RIGHT BUNDLE BRANCH BLOCK VOLTAGE CRITERIA FOR LVH NONSPECIFIC T-WAVE ABNORMALITY Compare d to previous tracing, ST-T abnormality new ABNORMAL ECG NO PREVIOUS TRACING DOCTOR: Jose Martin Grace Interpretating Date/Time 04/11/2017 19:45:03
--- NOTE | 2017-04-11 19:47 | EKG ---
Date Performed: 04/11/2017 Time Performed: 08:03:51 PTAGE: 32 years EKG: SINUS TACHYCARDIA INCOMPLETE RIGHT BUNDLE BRANCH BLOCK NONSPECIFIC T-WAVE ABNORMALITY QRS V OLTAGE IS NOT HIGH THE PRIOR TRACING ABNORMAL RHYTHM ECG PREVIOUS TRACING : 04/11/2017 05.12 DOCTOR: Jose Martin Grace Interpretating Date/Time 04/11/2017 19:45:25
--- NOTE | 2017-04-11 20:35 | HHI.HP ---
[facility] Service Family Medicine Primary Care Physician No Primary Care Physician Admission Diagnosis Sepsis Diagnoses: (1) Severe sepsis (2) IV drug user (3) Nausea & vomiting (4) Back pain (5) Hypokalemia (6) Nutrition, metabolism, and development symptoms (7) No contraindication to deep vein thrombosis (DVT) prophylaxis International Travel<30 Days: No Contact w/Intl Traveler<30days: No Known Affected Area: No History of Present Illness 32-year-old female with a long history of IV drug abuse presents to the emergency department with nausea/vomiting as well as thoracic back pain. Patient initially presented to the emergency department with her giovanni, who is being evaluated for endocarditis and is also an IV drug user. During his evaluation, she was found to be lying on the floor and vomiting/retching and she was instructed to be signed in and evaluated. During her initial evaluation , she states that she began having significant pain in her lower thoracic back prior to the onset of her vomiting. She denies any overt fevers and chills but states that she has been feeling general malaise for several days. In the emergency department, she was started on vancomycin and Zosyn as well as given IV Ativan for her agitation and IV Zofran for her vomiting. Her blood pressure was running low and she was also given 2.5 L normal saline boluses to keep her blood pressure up. Past Family Social History Allergies: Coded Allergies: No Known Allergies (Unverified Allergy, Unknown, 04/11/17) Physical Exam Vital Signs Vital Signs Date Time Temp Pulse Resp B/P (MAP) Pulse Ox O2 Delivery O2 Flow Rate FiO2 04/11/17 20:16 99 21 04/11/17 15:49 99.5 76 20 102/56 (71) 99 04/11/17 13:25 98.4 75 20 96/51 (66) 100 04/11/17 12:57 04/11/17 12:43 98.7 96 16 101/55 (70) 96 Nasal Cannula 4.00 04/11/17 11:27 98 16 118/73 (88) 96 Nasal Cannula 4.00 04/11/17 09:56 100.1 95 16 88/46 (60) 95 Room Air 04/11/17 09:22 100.6 04/11/17 07:38 98 Nasal Cannula 3.00 04/11/17 07:14 99.4 99 16 116/63 (80) 96 Room Air 04/11/17 07:10 16 97 Room Air 04/11/17 07:10 16 04/11/17 06:41 102.5 04/11/17 06:13 98 Room Air 04/11/17 06:12 99 16 116/59 (78) 98 Room Air 04/11/17 05:04 20 99 Room Air 04/11/17 04:59 22 04/11/17 04:57 99.5 103 22 110/52 (71) 98 Physical Exam GENERAL: Disheveled female lying in bed with fluctuating levels of consciousness but in no obvious distress. SKIN: Multiple lesions on the upper extremities consistent with IV tract vergara. Some areas are calcified/scarred and tender to palpation. No acute areas appreciated for active cellulitis. No areas of excessive warmth on her skin but she is mildly diaphoretic. No Janeway lesions, splinter hemorrhages, or oslers nodes appreciated. HEENT: AT, NC with EOMI. Pupils are sluggish to light stimulus. Mucus membranes are dry. Oropharynx mildly erythematous with multiple dental carries. No rhinorrhea. Trachea midline. Supple, nontender, no meningeal signs. No LAD, JVD , or thyroid abnormality appreciated. CARDIOVASCULAR: Regular rate and rhythm without murmurs, gallops, or rubs. 2+ pulses in all four extremities. RESPIRATORY: CTAB with no CRW. Minimal respiratory effort overall on 2L. No increased WOB. When awake, patient able to converse in short sentences. RR elevated. GASTROINTESTINAL: Abdomen soft, nondistended with +BS. Patient tender to mild palpation throughout the ABD. No masses appreciated. MUSCULOSKELETAL: Extremities without cyanosis. All four extremities tender to palpation without signs of acute trauma or infection. NEUROLOGICAL: Fluctuating consciousness. Oriented to PPT while awake. Patient able to move all extremities and endorses good sensation. CN 2-12 grossly intact. Laboratory Laboratory Tests Test 04/11/17 05:07 04/11/17 06:05 04/11/17 07:28 04/11/17 07:50 White Blood Count 3.5 Red Blood Count 4.21 Hemoglobin 12.5 Hematocrit 36.4 Mean Corpuscular Volume 86.6 Mean Corpuscular Hemoglobin 29.7 Mean Corpuscular Hemoglobin Concent 34.3 Red Cell Distribution Width 12.3 Platelet Count 169 Mean Platelet Volume 7.7 Neutrophils (%) (Auto) 90.2 Lymphocytes (%) (Auto) 8.8 Monocytes (%) (Auto) 0.4 Eosinophils (%) (Auto) 0.4 Basophils (%) (Auto) 0.2 Neutrophils # (Auto) 3.1 Lymphocytes # (Auto) 0.3 Monocytes # (Auto) 0.0 Eosinophils # (Auto) 0.0 Basophils # (Auto) 0.0 CBC Comment DIFF FINAL Differential Comment Prothrombin Time 10.9 Prothromb Time International Ratio 1.1 Activated Partial Thromboplast Time 23.8 Blood Urea Nitrogen 9 Creatinine 1.07 Random Glucose 77 Total Protein 7.1 Albumin 3.5 Calcium Level 8.9 Phosphorus Level 1.1 Magnesium Level 1.5 Alkaline Phosphatase 89 Aspartate Amino Transf (AST/SGOT) 25 Alanine Aminotransferase (ALT/SGPT) 11 Total Bilirubin 1.0 Sodium Level 137 Potassium Level 3.0 Chloride Level 104 Carbon Dioxide Level 25.1 Anion Gap 8 Estimat Glomerular Filtration Rate 60 Lactic Acid Level 2.3 1.7 Troponin I LESS THAN 0.02 Lipase 50 Human Chorionic Gonadotropin, Quant LESS THAN 1 Urine Color YELLOW Urine Turbidity HAZY Urine pH 5.5 Urine Specific [place] 1.009 Urine Protein TRACE Urine Glucose (UA) NEG Urine Ketones NEG Urine Occult Blood NEG Urine Nitrite NEG Urine Bilirubin NEG Urine Urobilinogen LESS THAN 2.0 Urine Leukocyte Esterase NEG Urine RBC 1 Urine WBC 1 Urine Squamous Epithelial Cells 3 Urine Bacteria RARE Urine Mucus FEW Microscopic Urinalysis Comment CATH-CULTURE IND Urine Opiates Screen POS Urine Barbiturates Screen NEG Urine Amphetamines Screen NEG Urine Benzodiazepines Screen NEG Urine Cocaine Screen POS Urine Cannabinoids Screen NEG Blood Gas Puncture Site LT RADIAL Blood Gas Patient Temperature 98.6 Blood Gas HCO3 20 Blood Gas Base Excess -3.7 Blood Gas Oxygen Saturation 80 Arterial Blood pH 7.42 Arterial Blood Partial Pressure CO2 32 Arterial Blood Partial Pressure O2 47 Arterial Blood Oxygen Content 11.9 Arterial Blood Carboxyhemoglobin 2.2 Arterial Blood Methemoglobin 0.5 Blood Gas Hemoglobin 10.5 Blood Gas Inspired Oxygen 21 Test 04/11/17 12:30 04/11/17 15:37 04/11/17 17:15 Ethyl Alcohol Level LESS THAN 3 Magnesium Level 1.6 C-Reactive Protein 7.90 Lactic Acid Level 1.3 Date/Time Source Procedure Growth Status 04/11/17 05:07 Blood Peripheral Aerobic Blood Culture Pending Received 04/11/17 05:07 Blood Peripheral Anaerobic Blood Culture Pending Received 04/11/17 07:00 Nasal Washing Influenza Types A,B Antigen (ZION) - Final NEGATIVE FOR FLU A AND B ANTIGEN.... Complete 04/11/17 06:05 Urine Catheterized Urine Urine Culture Pending Received Result Diagram: 04/11/17 0507 04/11/17 0507 Imaging Last 72 hours Impressions Chest X-Ray 04/11/17 0500 Signed Impressions: Service Date/Time: Tuesday, April 11, 2017 05:08 - CONCLUSION: No acute disease. Nehemiah Arguelles MD Thoracic Spine MRI 04/11/17 0000 Signed Impressions: Service Date/Time: Tuesday, April 11, 2017 08:18 - CONCLUSION: 1. Small left-sided protrusion at T11-12 causing mild narrowing in the left neural foramen. No canal stenosis. 2. No abscess seen. Bjorn Lozano MD Cervical Spine MRI 04/11/17 0000 Signed Impressions: Service Date/Time: Tuesday, April 11, 2017 08:18 - CONCLUSION: 1. Degenerative disc disease at C5-C6 and C6-C7. There is mild abutment of the cord at C5-C6 without signal change in the cord to suggest edema or myelomalacia. Neural foraminal narrowing also noted. Each level detailed above discussion. 2. No acute abnormality. MD Dandy Ching Jr. VTE Risk Assessment Caprini VTE Risk Assessment: Mod/High Risk (score >= 2) Caprini Risk Assessment Model Point Value = 1 Point Value = 2 Point Value = 3 Point Value = 5 Age 41-60 Minor surgery BMI > 25 kg/m2 Swollen legs Varicose veins or History of unexplained or recurrent spontaneous Oral contraceptives or hormone replacement Sepsis (< 1 month) Serious lung disease, including pneumonia (< 1 month) Abnormal pulmonary function Acute myocardial infarction Congestive heart failure (< 1 month) History of inflammatory bowel disease Medical patient at bed rest Age 61-74 Arthroscopic surgery Major open surgery (> 45 min) Laparoscopic surgery (> 45 min) Malignancy Confined to bed (> 72 hours) Immobilizing plaster cast Central venous access Age >= 75 History of VTE Family history of VTE Factor V Leiden Prothrombin [id number] Lupus anticoagulant Anticardiolipin antibodies Elevated serum homocysteine Heparin-induced thrombocytopenia Other congenital or acquired thrombophilia Stroke (< 1 month) Elective arthroplasty Hip, pelvis, or leg fracture Acute spinal cord injury (< 1 month) Prophylaxis Regimen Total Risk Factor Score Risk Level Prophylaxis Regimen 0-1 Low Early ambulation 2 Moderate Order ONE of the following: *Sequential Compression Device (SCD) *Heparin 5000 units SQ BID 3-4 Higher Order ONE of the following medications: *Heparin 5000 units SQ TID *Enoxaparin/Lovenox 40 mg SQ daily (WT < 150 kg, CrCl > 30 mL/min) *Enoxaparin/Lovenox 30 mg SQ daily (WT < 150 kg, CrCl > 10-29 mL/min) *Enoxaparin/Lovenox 30 mg SQ BID (WT < 150 kg, CrCl > 30 mL/min) AND/OR *Sequential Compression Device (SCD) 5 or more Highest Order ONE of the following medications: *Heparin 5000 units SQ TID (Preferred with Epidurals) *Enoxaparin/Lovenox 40 mg SQ daily (WT < 150 kg, CrCl > 30 mL/min) *Enoxaparin/Lovenox 30 mg SQ daily (WT < 150 kg, CrCl > 10-29 mL/min) *Enoxaparin/Lovenox 30 mg SQ BID (WT < 150 kg, CrCl > 30 mL/min) AND *Sequential Compression Device (SCD) Assessment and Plan Assessment and Plan Mrs. Umaña is a 32 y/o F presenting to the ED with AMS, nausea, vomiting, and lower back pain. Problem List: (1) Severe sepsis ICD Codes: A41.9 - Sepsis, unspecified organism; R65.20 - Severe sepsis without septic shock Status: Acute Plan: Patient meets severe sepsis criteria with leukopenia, fever, tachycardia , tachypnea, and source of infection with IV drug use -Likely bacteremia -No physical exam findings of endocarditis at this time Patient started on prophylactic antibiotics: Vancomycin Zosyn Received 2.5 L normal saline bolus in the emergency department -Continue aggressive IV hydration Blood cultures drawn and pending Urine cultures drawn and pending Chest x-ray with no acute process Initial lactic acid elevated at 2.7, normalized at 1.7 and then 1.3 following sepsis protocol Toradol as needed for pain Ativan as needed for agitation (2) IV drug user ICD Codes: F19.90 - Other psychoactive substance use, unspecified, uncomplicated Status: Acute Plan: Treatment for sepsis as above Ativan as needed for agitation Recommend discontinuation of IV drug use Tox screen positive for cocaine and opiates (3) Nausea & vomiting ICD Codes: R11.2 - Nausea with vomiting, unspecified Status: Acute Plan: Continue Zofran as needed for nausea/vomiting -Speech therapy consult evaluate for swallow study given altered consciousness (4) Back pain ICD Codes: M54.9 - Dorsalgia, unspecified Status: Acute Plan: Likely musculoskeletal in nature -Toradol as needed for pain MRI cervical spine and thoracic spine negative for epidural abscess (5) Hypokalemia ICD Codes: E87.6 - Hypokalemia Status: Acute Plan: Replenish and repeat lab work -Monitor and replenish as needed -Magnesium level pending as well (6) Nutrition, metabolism, and development symptoms ICD Codes: R63.8 - Other symptoms and signs concerning food and fluid intake Status: Acute (7) No contraindication to deep vein thrombosis (DVT) prophylaxis ICD Codes: Z78.9 - Other specified health status Status: Acute Physician Certification 2 Midnight Certification Type: Admission for Inpatient Services Order for Inpatient Services The services are ordered in accordance with Medicare regulations or non- Medicare payer requirements, as applicable. In the case of services not specified as inpatient-only, they are appropriately provided as inpatient services in accordance with the 2-midnight benchmark. Estimated LOS (days): 2 2 days is the estimated time the patient will need to remain in the hospital, assuming treatment plan goals are met and no additional complications. Post-Hospital Plan: Not yet determined Problem Qualifiers (1) Nausea & vomiting: Qualified Codes: G43.A0 - Cyclical vomiting, not intractable (2) Back pain: Qualified Codes: M54.5 - Low back pain Marcelo Hannon MD Apr 11, 2017 20:35
[2017-04-11] MEDS ORDERED: SODIUM CHLORIDE 0.9% FLUSH 10 ML FLUSH IV FLUSH SCH (21:00)
[2017-04-11] MEDS ORDERED: POTASSIUM CHLORIDE 10 MEQ CONTROLLED RELEASE TAB PO ONE (23:15)
[2017-04-12] VITALS: BP 115/64; PULSE 57; PULSE 77; RESP 18; TEMP 98; O2SAT 98
[2017-04-12] MEDS: SODIUM CHLOR 0.9% 1000 ML INJ 1,000 ML IV SCH ×2 (00:54→07:18)
[2017-04-12] MEDS: PIPERACIL-TAZO 4.5 GM PREMIX 100 ML IV SCH ×2 (01:27→07:18)
[2017-04-12] MEDS: VANCOMYCIN 1,500 MG/NS 500 ML IV SCH ×2 (03:20)
[2017-04-12] MEDS: HEPARIN SODIUM - SQ 10,000 UNITS/ML VIAL SQ SCH (03:21)
[2017-04-12 04:00] VITALS: BP 82/52; PULSE 67; RESP 18; TEMP 97.6; O2SAT 98
[2017-04-12 04:37] VITALS: PULSE 65
[2017-04-12] MEDS ORDERED: POTASSIUM CHLORIDE 10 MEQ CONTROLLED RELEASE TAB PO ONE (06:00)
[2017-04-12] MEDS ORDERED: SODIUM CHLOR 0.9% 1000 ML INJ 1,000 ML IV ONE (06:30)
[2017-04-12 07:15] LABS: BASOPHIL % 0.2 % (0.0-2.0); EOSINOPHIL # 0.1 TH/MM3 (0-0.4); HEMATOCRIT 31.6 % (35.0-46.0); HEMOGLOBIN 10.7 GM/DL (11.6-15.3); LYMPH % 14.8 % (9.0-44.0); LYMPHOCYTE # 1.3 TH/MM3 (1.0-4.8); MEAN CELL VOLUME 87.4 FL (80.0-100.0); MEAN CORPUSCULAR HEMOGLOBIN 29.7 PG (27.0-34.0); MEAN PLATELET VOLUME 8.6 FL (7.0-11.0); MONO % 5.7 % (0.0-8.0); MONOCYTE # 0.5 TH/MM3 (0-0.9); NEUT % 78.3 % (16.0-70.0); PLATELET COUNT 121 TH/MM3 (150-450); RED BLOOD COUNT 3.61 MIL/MM3 (4.00-5.30); RED CELL DISTRIBUTION WIDTH 12.7 % (11.6-17.2)
[2017-04-12 07:27] LABS: BICARBONATE 23.2 MEQ/L (21.0-32.0); CALCIUM 7.9 MG/DL (8.5-10.1); CREATININE 0.88 MG/DL (0.50-1.00)
[2017-04-12 08:00] VITALS: BP 123/57; PULSE 69; RESP 19; TEMP 98.7; O2SAT 98
--- NOTE | 2017-04-12 09:02 | HHI.FPPN ---
Subjective Remarks No acute events overnight. Resident team paged this AM, patient was hypotensive at 82/52. 1 L bolus of NS administered. Patient was responsive to fluids, BP recheck was 123/57. Pt sitting up in bed this AM, ordering breakfast. Pt states that she and her friends took heroin that was possible laced with other drugs. She reports that they felt immediately sick after taking it. She feels better this AM. She reports that her back pain has resolved. She states that she usually gets back pain when she is "cold" and weather changes. She denies CP, SOB, abdominal pain, and N/V. (Rocio Babcock MD R1) Objective Vitals Vital Signs Date Time Temp Pulse Resp B/P (MAP) Pulse Ox O2 Delivery O2 Flow Rate FiO2 04/12/17 08:00 98.7 69 19 123/57 (79) 98 04/12/17 04:37 65 04/12/17 04:00 97.6 67 18 82/52 (62) 98 04/12/17 00:00 98.0 57 18 115/64 (81) 98 04/12/17 00:00 77 04/11/17 21:10 66 04/11/17 20:16 99 21 04/11/17 20:00 97.7 142 18 119/67 (84) 97 04/11/17 15:49 99.5 76 20 102/56 (71) 99 04/11/17 13:25 98.4 75 20 96/51 (66) 100 04/11/17 12:57 04/11/17 12:43 98.7 96 16 101/55 (70) 96 Nasal Cannula 4.00 04/11/17 11:27 98 16 118/73 (88) 96 Nasal Cannula 4.00 04/11/17 09:56 100.1 95 16 88/46 (60) 95 Room Air 04/11/17 09:22 100.6 I/O 04/11/17 04/11/17 04/11/17 04/12/17 04/12/17 04/12/17 07:00 15:00 23:00 07:00 15:00 23:00 Intake Total 5400 ml 300 ml 1060 ml Output Total 100 ml Balance 5300 ml 300 ml 1060 ml Intake IV Total 5400 ml 300 ml 1060 ml Output Urine Total 100 ml # Voids 1 2 (Rocio Babcock MD R1) Result Diagram: 04/12/17 0609 04/12/17 06 Imaging GENERAL: sitting up in bed, in NAD SKIN: Multiple lesions on the upper extremities consistent with IV tract vergara. Some areas are calcified/scarred and tender to palpation. No acute areas appreciated for active cellulitis. Excessive warmth and mild diaphoresis. No Janeway lesions, splinter hemorrhages, or oslers nodes appreciated. HEENT: AT, NC with EOMI. Pupils are sluggish to light stimulus. Mucus membranes are dry. Oropharynx mildly erythematous with multiple dental carries. No rhinorrhea. Trachea midline. Supple, nontender, no meningeal signs. No LAD, JVD , or thyroid abnormality appreciated. CARDIOVASCULAR: Regular rate and rhythm without murmurs, gallops, or rubs. 2+ pulses in all four extremities. RESPIRATORY: CTAB GASTROINTESTINAL: Abdomen soft, nondistended with +BS. Patient tender to mild palpation throughout the ABD. No masses appreciated. MUSCULOSKELETAL: Extremities without cyanosis or edema. NEUROLOGICAL: Alert, Awake, and oriented x3. (Rocio Babcock MD R1) A/P Assessment and Plan Mrs. Umaña is a 32 y/o F IV drug user presented with SOB and fever, found to have bacteremia. (Rocio Babcock MD R1) Attending Attestation Pt. examined and case discussed with resident physicians. I have read the above note and agree with the assessment and plan as discussed with me. I was involved in all medical decision making for this patient. Marcelo Hannon MD (Marcelo Hannon MD) Problem List: (1) Bacteremia due to Gram-positive bacteria ICD Codes: R78.81 - Bacteremia Plan: -Patient currently meets severe sepsis criteria with fever, tachycardia, tachypnea, and leukopenia. Source of infection due to gram-positive bacteremia. -Blood culture x1 grew gram-positive cocci -Continue with Vancomycin 1500mg IV q12h and Zosyn 4.5gm IV q6h -Continue MIVFs 173mls/hr -Continue Lactic acid sepsis protocol -No physical exam findings consistent with endocarditis at this time (2) Severe sepsis ICD Codes: A41.9 - Sepsis, unspecified organism; R65.20 - Severe sepsis without septic shock Status: Acute Plan: See plan above. (3) IV drug user ICD Codes: F19.90 - Other psychoactive substance use, unspecified, uncomplicated Status: Acute Plan: -Recent cocaine, IV dilaudid, and heroin use -Urine tox screen positive for opiates and cocaine -Ativan as needed for agitation (4) Nausea & vomiting ICD Codes: R11.2 - Nausea with vomiting, unspecified Status: Acute Plan: -Zofran as needed for nausea/vomiting -Patient passed bedside swallow per nurse (5) Back pain ICD Codes: M54.9 - Dorsalgia, unspecified Status: Chronic Plan: -Cervical and thoracic MRI negative for epidural abscess -Toradol when necessary for pain (6) Hypokalemia ICD Codes: E87.6 - Hypokalemia Status: Resolved Plan: -Resolved to 3.7 -Continue to monitor and replaced as needed -Magnesium 1.6 (7) Nutrition, metabolism, and development symptoms ICD Codes: R63.8 - Other symptoms and signs concerning food and fluid intake Status: Acute Plan: -Fluids: MIVF 173mls/hr -Diet:Regular diet -Electrolytes: monitor and replace as needed vitals q4hr, monitor I & Os (8) No contraindication to deep vein thrombosis (DVT) prophylaxis ICD Codes: Z78.9 - Other specified health status Status: Acute Plan: -Heparin 5000 units every 8 hours -SCDs (Rocio Babcock MD R1) Problem Qualifiers (1) Nausea & vomiting: Qualified Codes: R11.2 - Nausea with vomiting, unspecified (2) Back pain: Qualified Codes: M54.5 - Low back pain Rocio Babcock MD R1 Apr 12, 2017 09:02 Marcelo Hannon MD Apr 12, 2017 19:03
[2017-04-12 09:58] VITALS: O2SAT 98
--- NOTE | 2017-04-12 10:52 | PD.AMA ---
Against Medical Advice Note Diagnosis: (1) Bacteremia due to Gram-positive bacteria (2) Sepsis (3) IV drug user Discharge Disposition: Against Medical Advice AMA Statement Patient Oralia Umaña has decided to leave the hospital against medical advice. This patient has the capacity to refuse care and understands the risks of leaving, including permanent disability and/or , and has had an opportunity to ask questions about her condition. The patient has been informed that she may return for care at any time, and follow up has been arranged/ advised. Patient will NOT be accepted back to the Family Medicine service if she were to return. Rocio Babcock MD R1 Apr 12, 2017 10:52
[2017-04-13] MEDS ORDERED: PHARMACY ORDERED LAB ONE (03:45)
[2017-04-14 13:33] LABS: HEPATITIS A AB IGM NEGATIVE (NEGATIVE); HEPATITIS B CORE AB IGM NEGATIVE (NEGATIVE); HEPATITIS B SURFACE ANTIGEN NEGATIVE (NEGATIVE); HEPATITIS C AB IgG REACTIVE (NEGATIVE)
== END 2017-04-12 10:21 | disposition left against medical advice (07) | DRG 872 ==
LOC: NEPE 04:55 → NEDA 10:35 → N05B 12:54 → UNDODISIN 04-12 10:21
PROVIDERS: ADMIT Family Medicine; ATTEND Family Medicine
DX: A41.9 Sepsis, unspecified organism (principal); I95.9 Hypotension, unspecified; F11.10 Opioid abuse, uncomplicated; R11.2 Nausea with vomiting, unspecified; R65.20 Severe sepsis without septic shock; E87.6 Hypokalemia; M54.9 Dorsalgia, unspecified
CPT/HCPCS: 36600; 71045; 72141; 72146; 80048; 80053; 80074; 80307; 81001; 82805; 83605; 83690; 83735; 84100; 84484; 84702; 85025; 85610; 85730; 86140; 86703; 87040; 87077; 87086; 87186; 87205; 87804; 93005; 96361; 96365; 96367; 96375; J1644; J2060; J2405; J2543; J3370; J7030; J7040

== ENCOUNTER 2017-04-13 04:42 | Inpatient (IN) | payer SELFPAY ==
[~2017-04-13] VITALS: Ht 182.9 cm; Wt 75.0 kg
[2017-04-13] VITALS (8 sets, daily range): BP systolic 105–131; BP diastolic 58–72; PULSE 52–76; RESP 17–20; TEMP 98–98.6; O2SAT 95–99
[2017-04-13] MEDS ORDERED: SODIUM CHLOR 0.9% 1000 ML INJ 1,000 ML IV ONE (05:10)
[2017-04-13] MEDS ORDERED: ACETAMINOPHEN 650 MG SUPP RECTAL ONE (05:15)
[2017-04-13] MEDS ORDERED: PIPERACIL-TAZO 4.5 GM PREMIX 100 ML IV ONE (05:15)
[2017-04-13] MEDS ORDERED: VANCOMYCIN INJ 1,000 MG in SODIUM CHLOR 0.9% 250 ML INJ 250 ML IV ONE (05:15)
--- NOTE | 2017-04-13 05:32 | PD ---
HPI Chief Complaint: Headache Time Seen by Provider: 04:55 Travel History International Travel<30 days: No Contact w/Intl Traveler<30days: No Traveled to known affect area: No History of Present Illness HPI 32-year-old female with history of IV drug abuse, admitted to the hospital on 04/11/17 for sepsis, left AMA on 04/12/17, here for reevaluation. The patient tells me that she left AMA because her boyfriend who is also an IV drug abuser was admitted to the ICU and she needed to see him. She tells me that she continues to have back pain and headache. Chart review shows that the patient had an MRI of her C-spine and T-spine during her last admission that did not reveal any evidence for epidural abscess or discitis, however when questioned why the L- spine MRI was not performed, the patient tells me that she had panic attack in the MRI scanner. Today she complains of right-sided headache described as pressure which has been ongoing for the last several days. She is also having mid and lower back pain. She denies trauma. She is unsure if she is still having fevers. No chest pain or dyspnea. Chart review shows that the patient' s blood culture from 04/11/17 grew out Streptococcus species. PFSH Past Medical History Cancer: No Cardiovascular Problems: No Cerebrovascular Accident: No Diminished Hearing: No Genitourinary: No Medical other: Yes (IV drug abuse) Musculoskeletal: No Neurologic: No Reproductive: No Respiratory: No Integumentary: Yes (RASH TODAY.) Immunizations Current: Yes Myocardial Infarction: No Tetanus Vaccination: < 5 Years Influenza Vaccination: Yes ?: Unknown LMP: 02/24/2017 Menopausal: No : 0 Past Surgical History Surgical History: No Previous Surgery Social History Alcohol Use: Yes (OCC.) Tobacco Use: Yes (05/11 PPD) Substance Use: Yes (DILAUDID, COCAINE IV 2 days ago) Allergies-Medications (Allergen,Severity, Reaction): Coded Allergies: No Known Allergies (Unverified Allergy, Unknown, 04/13/17) Reported Meds & Prescriptions Reported Meds & Active Scripts Active No Active Prescriptions or Reported Medications Review of Systems Except as stated in HPI: all other systems reviewed are Neg Physical Exam Narrative GENERAL: Well-developed, well-nourished, awake, alert, no apparent distress. SKIN: Focused skin assessment warm/dry. Tract vergara on bilateral upper extremities. No spider hemorrhages. No Janeway lesions or Osler nodes. HEAD: Atraumatic. Normocephalic. EYES: Pupils equal and round. No scleral icterus. No injection or drainage. ENT: Mucous membranes pink and moist. NECK: Trachea midline. No JVD. No nuchal rigidity. CARDIOVASCULAR: Regular rate and rhythm. No murmur appreciated. RESPIRATORY: No accessory muscle use. Clear to auscultation. Breath sounds equal bilaterally. GASTROINTESTINAL: Abdomen soft, non-tender, nondistended. MUSCULOSKELETAL: No obvious deformities. No clubbing. No cyanosis. No edema. NEUROLOGICAL: Awake and alert. No obvious cranial nerve deficits. Motor grossly within normal limits. Normal speech. PSYCHIATRIC: Appropriate mood and affect; insight and judgment normal. Data Data Last Documented VS Vital Signs Date Time Temp Pulse Resp B/P (MAP) Pulse Ox O2 Delivery O2 Flow Rate FiO2 04/13/17 05:27 99 Room Air 04/13/17 04:43 98.2 65 18 Orders Orders Sepsis Workup Initiated (04/13/17 ) Electrocardiogram (04/13/17 05:10) Complete Blood Count With Diff (04/13/17 05:10) Comprehensive Metabolic Panel (04/13/17 05:10) Prothrombin Time / Inr (Pt) (04/13/17 05:10) Act Partial Throm Time (Ptt) (04/13/17 05:10) Lactic Acid Sepsis Protocol (04/13/17 05:10) Ckmb (Isoenzyme) Profile (04/13/17 05:10) Troponin I (04/13/17 05:10) Urinalysis - C+S If Indicated (04/13/17 05:10) Influenzae A/B Antigen (04/13/17 05:10) Blood Culture (04/13/17 05:10) Chest, Single Ap (04/13/17 05:10) Blood Glucose (04/13/17 05:10) Ecg Monitoring (04/13/17 05:10) Iv Access Insert/Monitor (04/13/17 05:10) Oximetry (04/13/17 05:10) Oxygen Administration (04/13/17 05:10) Acetaminophen Supp (Tylenol Supp) (04/13/17 05:15) Sodium Chlor 0.9% 1000 Ml Inj (Ns 1000 M (04/13/17 05:10) Beta Hcg (Quant/Titer) (04/13/17 05:10) Ct Brain W/O Iv Contrast(Rout) (04/13/17 ) Mri L Spine W&W/O Contrast (04/13/17 ) Vancomycin Inj (Vancomycin Inj) (04/13/17 05:15) Piperacil-Tazo 4.5 Gm Premix (Zosyn 4.5 (04/13/17 05:15) Acetaminophen (Tylenol) (04/13/17 05:45) Metoclopramide Inj (Reglan Inj) (04/13/17 06:00) Labs Laboratory Tests Test 04/13/17 05:20 White Blood Count 6.2 TH/MM3 Red Blood Count 3.66 MIL/MM3 Hemoglobin 10.7 GM/DL Hematocrit 31.7 % Mean Corpuscular Volume 86.6 FL Mean Corpuscular Hemoglobin 29.3 PG Mean Corpuscular Hemoglobin Concent 33.9 % Red Cell Distribution Width 12.5 % Platelet Count 152 TH/MM3 Mean Platelet Volume 8.2 FL Neutrophils (%) (Auto) 72.1 % Lymphocytes (%) (Auto) 19.0 % Monocytes (%) (Auto) 5.7 % Eosinophils (%) (Auto) 2.7 % Basophils (%) (Auto) 0.5 % Neutrophils # (Auto) 4.5 TH/MM3 Lymphocytes # (Auto) 1.2 TH/MM3 Monocytes # (Auto) 0.4 TH/MM3 Eosinophils # (Auto) 0.2 TH/MM3 Basophils # (Auto) 0.0 TH/MM3 CBC Comment DIFF FINAL Differential Comment Prothrombin Time 10.5 SEC Prothromb Time International Ratio 1.0 RATIO Activated Partial Thromboplast Time 28.1 SEC Urine Color YELLOW Urine Turbidity HAZY Urine pH 6.0 Urine Specific [place] 1.017 Urine Protein TRACE mg/dL Urine Glucose (UA) NEG mg/dL Urine Ketones NEG mg/dL Urine Occult Blood NEG Urine Nitrite NEG Urine Bilirubin NEG Urine Urobilinogen LESS THAN 2.0 MG/DL Urine Leukocyte Esterase TRACE Urine RBC 1 /hpf Urine WBC 2 /hpf Urine Squamous Epithelial Cells 9 /hpf Urine Mucus FEW /lpf Microscopic Urinalysis Comment CATH-CULT NOT IND Blood Urea Nitrogen 4 MG/DL Creatinine 0.72 MG/DL Random Glucose 93 MG/DL Total Protein 6.4 GM/DL Albumin 3.0 GM/DL Calcium Level 8.5 MG/DL Alkaline Phosphatase 57 U/L Aspartate Amino Transf (AST/SGOT) 11 U/L Alanine Aminotransferase (ALT/SGPT) 10 U/L Total Bilirubin 0.3 MG/DL Sodium Level 140 MEQ/L Potassium Level 3.5 MEQ/L Chloride Level 110 MEQ/L Carbon Dioxide Level 22.3 MEQ/L Anion Gap 8 MEQ/L Estimat Glomerular Filtration Rate 95 ML/MIN Lactic Acid Level 0.5 mmol/L Total Creatine Kinase 34 U/L Troponin I 0.02 NG/ML Human Chorionic Gonadotropin, Quant LESS THAN 1 MIU/ML MDM Medical Decision Making Medical Screen Exam Complete: Yes Emergency Medical Condition: Yes Medical Record Reviewed: Yes Interpretation(s) EKG: Sinus, rate 56, normal axis, normal intervals, incomplete RBBB, no acute ischemic abnormality. Differential Diagnosis Sepsis, bacteremia, endocarditis, epidural abscess, intracranial abnormality, tension headache, cluster headache, meningitis/encephalitis less likely Narrative Course Initial vital signs show heart rate 65, blood pressure 131/72, pulse ox 98% on room air, oral temp of 98.2F. CBC: WBC 6.2, hemoglobin 10.7, hematocrit 31.7, platelets 152, neutrophils 72%. CMP is unremarkable. Lactic acid is 0.5. Beta hCG is negative. UA is not suggestive of UTI. Influenza is negative. CT head: Normal exam. Chest x-ray: No acute disease. Patient was given a liter of normal saline IV, oral Tylenol, and 10 mg of IV Reglan. On reassessment she is resting comfortably and states her headache has resolved. Clinically I do not believe she has meningitis or encephalitis. Chart review shows that on her most recent admission from 04/11/17 her blood culture grew out strep species. She was given a dose of IV vancomycin and IV Zosyn here. At approximately 7:00 AM at the end of my shift the patient was signed out to the oncoming provider Dr Duffy to follow up with MRI L-spine and formulate a disposition. Scripts No Active Prescriptions or Reported Meds Florentino Foster MD Apr 13, 2017 05:32
[2017-04-13 05:41] LABS: AUTOMATED NEUTROPHIL # 4.5 TH/MM3 (1.8-7.7); BASOPHIL % 0.5 % (0.0-2.0); EOSINOPHIL # 0.2 TH/MM3 (0-0.4); EOSINOPHIL % 2.7 % (0.0-4.0); HEMATOCRIT 31.7 % (35.0-46.0); HEMOGLOBIN 10.7 GM/DL (11.6-15.3); LYMPHOCYTE # 1.2 TH/MM3 (1.0-4.8); MEAN CELL VOLUME 86.6 FL (80.0-100.0); MEAN CORPUSCULAR HEMOGLOBIN 29.3 PG (27.0-34.0); MEAN CORPUSCULAR HGB CONC 33.9 % (32.0-36.0); MEAN PLATELET VOLUME 8.2 FL (7.0-11.0); MONO % 5.7 % (0.0-8.0); MONOCYTE # 0.4 TH/MM3 (0-0.9); NEUT % 72.1 % (16.0-70.0); PLATELET COUNT 152 TH/MM3 (150-450); RED BLOOD COUNT 3.66 MIL/MM3 (4.00-5.30); RED CELL DISTRIBUTION WIDTH 12.5 % (11.6-17.2); WHITE BLOOD COUNT 6.2 TH/MM3 (4.0-11.0)
[2017-04-13] MEDS ORDERED: ACETAMINOPHEN 325 MG TAB PO ONE (05:45)
--- NOTE | 2017-04-13 05:46 | RADRPT ---
EXAM DATE/TIME: 04/13/2017 05:36 [facility] COMPARISON: No previous studies available for comparison. INDICATIONS : Headaches. RADIATION DOSE: 52.13 CTDIvol (mGy) MEDICAL HISTORY : Substance abuse SURGICAL HISTORY : None. ENCOUNTER: Initial ACUITY: 1 day PAIN SCALE: 8/10 LOCATION: cranial TECHNIQUE: Multiple contiguous axial images were obtained of the head. Using automated exposure control and adj ustment of the mA and/or kV according to patient size, radiation dose was kept as low as reasonably a chievable to obtain optimal diagnostic quality images. DICOM format image data is available electro nically for review and comparison. FINDINGS: CEREBRUM: The ventricles are normal for age. No evidence of midline shift, mass lesion, hemorrhage or acute in farction. No extra-axial fluid collections are seen. POSTERIOR FOSSA: The cerebellum and brainstem are intact. The 4th ventricle is midline. The cerebellopontine angle i s unremarkable. EXTRACRANIAL: The visualized portion of the orbits is intact. SKULL: The calvaria is intact. No evidence of skull fracture. CONCLUSION: Normal examination. Nehemiah Arguelles MD on April 13, 2017 at 5:45 Board Certified Radiologist. This report was verified electronically.
[2017-04-13 05:47] LABS: BILIRUBIN, URINE NEG (NEG); BLOOD, URINE NEG (NEG); GLUCOSE,URINE NEG (NEG); KETONE, URINE NEG (NEG); MUCUS URINE FEW /lpf (OCC); NITRITE,URINE NEG (NEG); SQUAMOUS EPITHELIAL CELL URINE 9 /hpf (0-5); URINE COLOR YELLOW (YELLW/STRAW); URINE LEUKOCYTE ESTERASE TRACE (NEG)
--- NOTE | 2017-04-13 05:53 | RADRPT ---
EXAM DATE/TIME: 04/13/2017 05:24 [facility] COMPARISON: CHEST SINGLE AP, April 11, 2017, 5:08. INDICATIONS : Fever. Recheck from visit two days ago. MEDICAL HISTORY : Sepsis. IV Drug use SURGICAL HISTORY : None. ENCOUNTER: Subsequent ACUITY: 4 - 6 days PAIN SCORE: 0/10 LOCATION: Bilateral chest FINDINGS: A single view of the chest demonstrates the lungs to be symmetrically aerated without evidence of mas s, infiltrate or effusion. The cardiomediastinal contours are unremarkable. Osseous structures are intact. CONCLUSION: No acute disease. Nehemiah Arguelles MD on April 13, 2017 at 5:51 Board Certified Radiologist. This report was verified electronically.
[2017-04-13] MEDS ORDERED: METOCLOPRAMIDE HCL 10 MG/2 ML VIAL IV PUSH ONE (06:00)
[2017-04-13 06:04] LABS: PROTHROMBIN TIME - PATIENT 10.5 SEC (9.8-11.6)
[2017-04-13 06:08] LABS: AST (GOT) 11 U/L (15-37); BICARBONATE 22.3 MEQ/L (21.0-32.0); BLOOD UREA NITROGEN 4 MG/DL (7-18); CALCIUM 8.5 MG/DL (8.5-10.1); CHLORIDE 110 MEQ/L (98-107); CREATININE 0.72 MG/DL (0.50-1.00); GLOMERULAR FILTRATION RATE 95 ML/MIN (>89); GLUCOSE,RANDOM 93 MG/DL (74-106); SODIUM (NA) 140 MEQ/L (136-145)
[2017-04-13 06:09] LABS: ALT (GPT) 10 U/L (10-53)
[2017-04-13 06:13] LABS: ALKALINE PHOSPHATASE 57 U/L (45-117); TOTAL BILIRUBIN ADULT 0.3 MG/DL (0.2-1.0); TOTAL PROTEIN 6.4 GM/DL (6.4-8.2); TROPONIN I 0.02 NG/ML (0.02-0.05)
[2017-04-13] MEDS ORDERED: GADODIAMIDE PF 287 MG/ML 20 ML VIAL (for RAD MRI) IVCONTRAST ONE (08:20)
--- NOTE | 2017-04-13 08:45 | RADRPT ---
EXAM DATE/TIME: 04/13/2017 08:07 [facility] COMPARISON: No previous studies available for comparison. INDICATIONS : Abscess. CONTRAST: 15 cc Omniscan (gadodiamide) IV MEDICAL HISTORY : IVDA SURGICAL HISTORY : None. ENCOUNTER: Subsequent ACUITY: 4-6 days PAIN SCORE: 4/10 LOCATION: Paraspinal TECHNIQUE: Multiplanar multisequence MRI of the lumbar spine was performed with and without contrast. FINDINGS: The most caudal appearing lumbar vertebra is numbered as L5. VERTEBRAE: Homogeneous signal. Normal alignment. Disc spaces are maintained. Disc desiccation L5-S1. CONUS: Normal level and configuration. POST CONTRAST: No abnormal areas of contrast enhancement are seen. T12-L1: The thecal sac has a normal diameter. No evidence of disc bulge or protrusion. The neural foramina are patent bilaterally. L1-L2: Mild asymmetric left-sided disc bulge abuts ventral thecal sac without canal stenosis. The neural fo ramina are patent bilaterally. L2-L3: The thecal sac has a normal diameter. No evidence of disc bulge or protrusion. The neural foramina are patent bilaterally. L3-L4: The thecal sac has a normal diameter. No evidence of disc bulge or protrusion. The neural foramina are patent bilaterally. Mild facet arthropathy. L4-L5: Mild broad-based disc bulge abuts ventral thecal sac without canal stenosis. Mild facet arthropathy. The neural foramina are patent bilaterally. L5-S1: Minimal retrolisthesis. Mild broad-based disc bulge abuts ventral thecal sac without canal stenosis. Mild facet arthropathy. The neural foramina are patent bilaterally. CONCLUSION: 1. Mild broad-based disc bulges at L1-2, L4-5 and L5-S1 levels. 2. Minimal retrolisthesis L5 on S1. 3. No abscess or canal stenosis seen. Bjorn Lozano MD on April 13, 2017 at 8:40 Board Certified Radiologist. This report was verified electronically.
[2017-04-13] MEDS: SODIUM CHLOR 0.9% 1000 ML INJ 1,000 ML IV SCH ×2 (08:58→18:58)
[2017-04-13] MEDS ORDERED: HALOPERIDOL LACTATE 5 MG/ML AMP IM PRN (09:00)
[2017-04-13] MEDS: SODIUM CHLORIDE 0.9% FLUSH 10 ML FLUSH IV FLUSH SCH ×2 (09:00→22:10)
[2017-04-13] MEDS ORDERED: METOCLOPRAMIDE HCL 10 MG/2 ML VIAL IV PUSH PRN (09:00)
[2017-04-13] MEDS ORDERED: LACTULOSE SYRUP 20 GM/30 ML CUP PO PRN (09:00)
[2017-04-13] MEDS ORDERED: BISACODYL 10 MG SUPP RECTAL PRN (09:00)
[2017-04-13] MEDS ORDERED: LORazepam 2 MG TAB PO PRN (09:00)
[2017-04-13] MEDS ORDERED: ACETAMINOPHEN 325 MG TAB PO PRN ×2 (09:00)
[2017-04-13] MEDS ORDERED: MORPHINE SULFATE 2 MG/ML INJ IV PUSH PRN ×2 (09:00)
[2017-04-13] MEDS ORDERED: SODIUM CHLORIDE 0.9% FLUSH 10 ML FLUSH IV FLUSH PRN (09:00)
[2017-04-13] MEDS ORDERED: SENNOSIDES 8.6 MG TAB PO PRN (09:00)
[2017-04-13] MEDS ORDERED: FLUMAZENIL 0.5 MG/5 ML VIAL IV PUSH PRN (09:00)
[2017-04-13] MEDS ORDERED: ACETAMINOPHEN/HYDROcodone 325 MG/5 MG TAB PO PRN (09:00)
[2017-04-13] MEDS ORDERED: ONDANSETRON HCL 4 MG/2 ML VIAL IVP PRN (09:00)
[2017-04-13] MEDS ORDERED: LORazepam 1 MG TAB PO PRN (09:00)
[2017-04-13] MEDS ORDERED: MAGNESIUM HYDROXIDE SUSP 30 ML CUP PO PRN (09:00)
[2017-04-13] MEDS ORDERED: ACETAMINOPHEN/HYDROcodone 325 MG/10 MG TAB PO PRN (09:00)
[2017-04-13] MEDS: DOCUSATE SODIUM 50 MG/SENNA 8.6 MG TAB PO SCH ×2 (09:00→21:00)
[2017-04-13] MEDS ORDERED: NALOXONE HCL 0.4 MG/ML AMP IV PUSH PRN (09:00)
[2017-04-13] MEDS ORDERED: LORazepam 2 MG/ML VIAL IV PUSH PRN ×4 (09:00)
[2017-04-13] MEDS ORDERED: Vancomycin Consult Pharmacy 1 EA OTHER SCH (09:15)
--- NOTE | 2017-04-13 09:19 | PD ---
Data Data Last Documented VS Vital Signs Date Time Temp Pulse Resp B/P (MAP) Pulse Ox O2 Delivery O2 Flow Rate FiO2 04/13/17 07:32 52 17 106/58 (74) 95 Room Air 04/13/17 04:43 98.2 Orders Orders Sepsis Workup Initiated (04/13/17 ) Electrocardiogram (04/13/17 05:10) Complete Blood Count With Diff (04/13/17 05:10) Comprehensive Metabolic Panel (04/13/17 05:10) Prothrombin Time / Inr (Pt) (04/13/17 05:10) Act Partial Throm Time (Ptt) (04/13/17 05:10) Lactic Acid Sepsis Protocol (04/13/17 05:10) Ckmb (Isoenzyme) Profile (04/13/17 05:10) Troponin I (04/13/17 05:10) Urinalysis - C+S If Indicated (04/13/17 05:10) Influenzae A/B Antigen (04/13/17 05:10) Blood Culture (04/13/17 05:10) Chest, Single Ap (04/13/17 05:10) Blood Glucose (04/13/17 05:10) Ecg Monitoring (04/13/17 05:10) Iv Access Insert/Monitor (04/13/17 05:10) Oximetry (04/13/17 05:10) Oxygen Administration (04/13/17 05:10) Acetaminophen Supp (Tylenol Supp) (04/13/17 05:15) Sodium Chlor 0.9% 1000 Ml Inj (Ns 1000 M (04/13/17 05:10) Beta Hcg (Quant/Titer) (04/13/17 05:10) Ct Brain W/O Iv Contrast(Rout) (04/13/17 ) Mri L Spine W&W/O Contrast (04/13/17 ) Vancomycin Inj (Vancomycin Inj) (04/13/17 05:15) Piperacil-Tazo 4.5 Gm Premix (Zosyn 4.5 (04/13/17 05:15) Acetaminophen (Tylenol) (04/13/17 05:45) Metoclopramide Inj (Reglan Inj) (04/13/17 06:00) Admit Order (Ed Use Only) (04/13/17 ) Labs Laboratory Tests Test 2/4/18 05:20 White Blood Count 6.2 TH/MM3 Red Blood Count 3.66 MIL/MM3 Hemoglobin 10.7 GM/DL Hematocrit 31.7 % Mean Corpuscular Volume 86.6 FL Mean Corpuscular Hemoglobin 29.3 PG Mean Corpuscular Hemoglobin Concent 33.9 % Red Cell Distribution Width 12.5 % Platelet Count 152 TH/MM3 Mean Platelet Volume 8.2 FL Neutrophils (%) (Auto) 72.1 % Lymphocytes (%) (Auto) 19.0 % Monocytes (%) (Auto) 5.7 % Eosinophils (%) (Auto) 2.7 % Basophils (%) (Auto) 0.5 % Neutrophils # (Auto) 4.5 TH/MM3 Lymphocytes # (Auto) 1.2 TH/MM3 Monocytes # (Auto) 0.4 TH/MM3 Eosinophils # (Auto) 0.2 TH/MM3 Basophils # (Auto) 0.0 TH/MM3 CBC Comment DIFF FINAL Differential Comment Prothrombin Time 10.5 SEC Prothromb Time International Ratio 1.0 RATIO Activated Partial Thromboplast Time 28.1 SEC Urine Color YELLOW Urine Turbidity HAZY Urine pH 6.0 Urine Specific [place] 1.017 Urine Protein TRACE mg/dL Urine Glucose (UA) NEG mg/dL Urine Ketones NEG mg/dL Urine Occult Blood NEG Urine Nitrite NEG Urine Bilirubin NEG Urine Urobilinogen LESS THAN 2.0 MG/DL Urine Leukocyte Esterase TRACE Urine RBC 1 /hpf Urine WBC 2 /hpf Urine Squamous Epithelial Cells 9 /hpf Urine Mucus FEW /lpf Microscopic Urinalysis Comment CATH-CULT NOT IND Blood Urea Nitrogen 4 MG/DL Creatinine 0.72 MG/DL Random Glucose 93 MG/DL Total Protein 6.4 GM/DL Albumin 3.0 GM/DL Calcium Level 8.5 MG/DL Alkaline Phosphatase 57 U/L Aspartate Amino Transf (AST/SGOT) 11 U/L Alanine Aminotransferase (ALT/SGPT) 10 U/L Total Bilirubin 0.3 MG/DL Sodium Level 140 MEQ/L Potassium Level 3.5 MEQ/L Chloride Level 110 MEQ/L Carbon Dioxide Level 22.3 MEQ/L Anion Gap 8 MEQ/L Estimat Glomerular Filtration Rate 95 ML/MIN Lactic Acid Level 0.5 mmol/L Total Creatine Kinase 34 U/L Troponin I 0.02 NG/ML Human Chorionic Gonadotropin, Quant LESS THAN 1 MIU/ML MDM Supervised Visit with VAUGHN: Yes Narrative Course 32-year-old woman, active IV drug use, positive blood cultures, left AMA yesterday, concern for osteomyelitis in the back, only got half of her MRI done when she was in the hospital. Back with headache. CT is negative. Inflammatory markers remain elevated. Repeat cultures ordered, MRI L-spine ordered, will admit for follow-up of cultures. Scripts No Active Prescriptions or Reported Meds Liam Duffy MD Apr 13, 2017 09:19
[2017-04-13] MEDS: VANCOMYCIN 1 GM/200 ML PREMIX IV SCH ×2 (12:29→22:07)
[2017-04-13] MEDS: PIPERACIL-TAZO 4.5 GM PREMIX 100 ML IV SCH ×2 (12:38→22:07)
--- NOTE | 2017-04-13 12:44 | EKG ---
Date Performed: 04/13/2017 Time Performed: 05:24:43 PTAGE: 32 years EKG: SINUS BRADYCARDIA INCOMPLETE RIGHT BUNDLE BRANCH BLOCK MINIMAL VOLTAGE CRITERIA FOR LVH, CO NSIDER NORMAL VARIANT BORDERLINE ECG Compared to PREVIOUS TRACING , heart rate is much slower and the ST-T changes have improved. PREVIOUS TRACIN04/11/2017 08.03 DOCTOR: Kyler Carson Interpretating Date/Time 04/13/2017 12:43:38
[2017-04-13 13:20] LABS: TROPONIN I LESS THAN 0.02 NG/ML (0.02-0.05)
--- NOTE | 2017-04-13 13:42 | HHI.HP ---
[facility] No Primary Care Physician Admission Diagnosis Bacteremia, back pain Diagnoses: Chief Complaint: HEADACHE Travel History International Travel<30 Days: No Contact w/Intl Traveler <30 Da: No Traveled to Known Affected Are: No History of Present Illness Patient is a 32-year-old female with a known history of IV drug abuse. She was admitted to the hospital on 04/11/07 for sepsis. She left AGAINST MEDICAL ADVICE on 04/12/17 to see her boyfriend who was in the ICU and wanted to see him. Patient left AGAINST MEDICAL ADVICE and comes back now with back pain and headache had an MRI of her cervical spine and thoracic spine which did not reveal any evidence of epidural abscess or discitiS. Her lumbar spine MRI was done this admission which shows no epidural abscess or discitis. Patient was able to tolerate the MRI today here today. She Has a right-sided headache described as pressure, and she has chronic mid and lower back pain denies any trauma denies any fevers denies any chest pain or dyspnea had some blood cultures on April 11 which grew out symptoms Streptococcus species Patient will be admitted. Continued on vancomycin and Zosyn and await cultures new cultures have been drawn We'll get an echocardiogram And patient will be followed here in the hospital. We'll give her pain control and medications for withdrawal Review of Systems Constitutional: COMPLAINS OF: Chills, DENIES: Diaphoretic episodes, Fatigue, Fever, Weight gain, Weight loss, Dizziness, Change in appetite, Night Sweats Endocrine: DENIES: Abnorml menstrual pattern, Heat/cold intolerance, Polydipsia , Polyuria, Polyphagia Eyes: DENIES: Blurred vision, Diplopia, Eye inflammation, Eye pain, Vision loss , Photosensitivity Ears, nose, mouth, throat: DENIES: Tinnitus, Hearing loss, Vertigo, Nasal discharge, Oral lesions, Throat pain, Running Nose, Epistaxis, Sinus Pain, Toothache, Odynophagia Respiratory: DENIES: Apneas, Cough, Snoring, Wheezing, Hemoptysis, Sputum production Cardiovascular: DENIES: Chest pain, Palpitations, Syncope, Dyspnea on Exertion , PND Gastrointestinal: DENIES: Abdominal pain, Black stools, Bloody stools, Constipation, Diarrhea, Anorexia Genitourinary: DENIES: Abnormal vaginal bleeding, Dysmenorrhea, Dyspareunia, Urgency, Hematuria, Dysuria, Nocturia Musculoskeletal: COMPLAINS OF: Joint pain, Back pain, Neck pain, DENIES: Muscle aches, Stiffness, Joint Swelling Integumentary: DENIES: Abnormal pigmentation, Pruritus, Rash, Nail changes, Breast masses, Breast skin changes, Nipple discharge Hematologic/lymphatic: DENIES: Bruising, Lymphadenopathy Immunologic/allergic: DENIES: Eczema, Urticaria Neurologic: COMPLAINS OF: Headache, DENIES: Abnormal gait, Localized weakness, Paresthesias, Seizures, Speech Problems, Tremor, Poor Balance Psychiatric: COMPLAINS OF: Anxiety, Depression, Agitation, DENIES: Confusion, Mood changes, Hallucinations, Suicidal Ideation, Homicidal Ideation, Delusions Except as stated in HPI: all other systems reviewed are Neg Past Family Social History Past Medical History IV drug abuse Past Surgical History Denies Reported Medications Reported Meds & Active Scripts Active No Active Prescriptions or Reported Medications Allergies: Coded Allergies: No Known Allergies (Unverified Allergy, Unknown, 04/13/17) Active Ordered Medications Current Medications Acetaminophen (Tylenol Supp) 650 mg ONCE ONCE RECTAL ; Start 04/13/17 at 05:15; Stop 04/13/17 at 05:35; Status DC Sodium Chloride 1,000 ml @ 1,000 mls/hr Q1H ONCE IV Last administered on at 05:28; Start 04/13/17 at 05:10; Stop 04/13/17 at 06:09; Status DC Vancomycin HCl 1000 mg/Sodium Chloride 250 ml @ 250 mls/hr ONCE ONCE IV Last administered on 04/13/17at 06:29; Start 04/13/17 at 05:15; Stop 04/13/17 at 06:14; Status DC Piperacillin Sod/ Tazobactam Sod 100 ml @ 200 mls/hr ONCE ONCE IV Last administered on 04/13/17at 05:29; Start 04/13/17 at 05:15; Stop 04/13/17 at 05:44; Status DC Acetaminophen (Tylenol) 650 mg ONCE ONCE PO Last administered on 04/13/17at 06: 29; Start 04/13/17 at 05:45; Stop 04/13/17 at 05:46; Status DC Metoclopramide HCl (Reglan Inj) 10 mg ONCE ONCE IV PUSH Last administered on at 06:31; Start 04/13/17 at 06:00; Stop 04/13/17 at 06:01; Status DC Gadodiamide (Omniscan Pf Inj) 15 ml STK-MED ONCE IVCONTRAST Last administered on 04/13/17at 08:20; Start 04/13/17 at 08:20; Stop 04/13/17 at 08:21; Status DC Sodium Chloride 1,000 ml @ 100 mls/hr Q10H IV Last administered on 04/13/17at 08 :58; Start 04/13/17 at 08:58 Sodium Chloride (NS Flush) 2 ml UNSCH PRN IV FLUSH FLUSH AFTER USING IV ACCESS ; Start 04/13/17 at 09:00 Sodium Chloride (NS Flush) 2 ml BID IV FLUSH ; Start 04/13/17 at 09:00 Acetaminophen (Tylenol) 650 mg Q4H PRN PO TEMP > 100.4; Start 04/13/17 at 09:00 Ondansetron HCl (Zofran Inj) 4 mg Q6H PRN IVP NAUSEA OR VOMITING; Start at 09:00 Metoclopramide HCl (Reglan Inj) 5 mg Q6H PRN IV PUSH NAUSEA OR VOMITING; Start 04/13/17 at 09:00 Acetaminophen (Tylenol) 650 mg Q6H PRN PO PAIN SCALE 1 TO 2; Start 04/13/17 at 09:00 Acetaminophen/ Hydrocodone Bitart ([place] 5-325 Mg) 1 tab Q4H PRN PO PAIN SCALE 3 TO 5; Start 04/13/17 at 09:00 Acetaminophen/ Hydrocodone Bitart ([place] 10-325 Mg) 1 tab Q4H PRN PO PAIN SCALE 6 TO 10; Start 04/13/17 at 09:00 Morphine Sulfate (Morphine Inj) 2 mg Q3H PRN IV PUSH Pain 3-5; if unable to take PO; Start 04/13/17 at 09:00 Morphine Sulfate (Morphine Inj) 4 mg Q3H PRN IV PUSH Pain 6-10;if unable to take PO; Start 04/13/17 at 09:00 Naloxone HCl (Narcan Inj) 0.4 mg UNSCH PRN IV PUSH SEE LABEL COMMENTS; Start at 09:00 Senna/Docusate Sodium (Demi-Colace) 1 tab BID PO ; Start 04/13/17 at 09:00 Magnesium Hydroxide (Milk Of Magnesia Liq) 30 ml Q12H PRN PO Mild constipation ; Start 04/13/17 at 09:00 Sennosides (Senokot) 17.2 mg Q12H PRN PO Moderate constipation; Start 04/13/17 at 09:00 Bisacodyl (Dulcolax Supp) 10 mg DAILY PRN RECTAL SEVERE CONSITIPATION; Start at 09:00 Lactulose (Lactulose Liq) 30 ml DAILY PRN PO SEVERE CONSITIPATION; Start at 09:00 Flumazenil (Romazicon Inj) 0.2 mg Q1M PRN IV PUSH SEE LABEL COMMENTS; Start 04/13/17 at 09:00 Lorazepam (Ativan) 1 mg Q4H PRN PO CIWA 8 - 10; Start 04/13/17 at 09:00 Lorazepam (Ativan Inj) 1 mg Q4H PRN IV PUSH CIWA 8 - 10; Start 04/13/17 at 09:00 Lorazepam (Ativan) 2 mg Q2H PRN PO CIWA 11-14; Start 04/13/17 at 09:00 Lorazepam (Ativan Inj) 2 mg Q2H PRN IV PUSH CIWA 11-14; Start 04/13/17 at 09:00 Lorazepam (Ativan Inj) 2 mg Q1H PRN IV PUSH CIWA 15-20; Start 04/13/17 at 09:00 Lorazepam (Ativan Inj) 2 mg Q15M PRN IV PUSH CIWA > 20; Start 04/13/17 at 09:00 Haloperidol Lactate (Haldol Inj) 2 mg Q15M PRN IM SEE LABEL COMMENTS; Start 04/13/17 at 09:00 Pharmacy Profile Note 0 ml @ 0 mls/hr UNSCH OTHER ; Start 04/13/17 at 09:15 Piperacillin Sod/ Tazobactam Sod 100 ml @ 200 mls/hr Q8H IV Last administered on 04/13/17at 12:38; Start 04/13/17 at 13:00 Vancomycin/Sodium Chloride 200 ml @ 200 mls/hr Q8H IV Last administered on 04/13at 12:29; Start 04/13/17 at 14:00 Miscellaneous Information SPECIFIC LAB TO BE DRAWN:VA... ONCE ONCE .XX ; Start 04/14/17 at 05:45; Stop 04/14/17 at 05:46 Family History Denies any history tobacco and substance abuse and family Social History Shoots up IV oral Dilaudid Shoots up IV cocaine Shoots up IV heroin Tobacco abuse about a half a pack to a pack plus each day Denies alcohol abuse Physical Exam Vital Signs Vital Signs Date Time Temp Pulse Resp B/P (MAP) Pulse Ox O2 Delivery O2 Flow Rate FiO2 04/13/17 12:32 98.0 63 20 105/64 (78) 96 04/13/17 09:42 04/13/17 07:32 52 17 106/58 (74) 95 Room Air 04/13/17 05:27 99 Room Air 04/13/17 05:27 99 Room Air 04/13/17 04:43 98.2 65 18 131/72 (91) 98 Physical Exam GENERAL: This is a well-nourished, well-developed patient, in no apparent distress. SKIN: No rashes, ecchymoses or lesions. Cool and dry. Has multiple track vergara on bilateral arms from where she shoots up IV drugs HEAD: Atraumatic. Normocephalic. No temporal or scalp tenderness. EYES: Pupils equal round and reactive. Extraocular motions intact. No scleral icterus. No injection or drainage. ENT: Nose without bleeding, purulent drainage or septal hematoma. Throat without erythema, tonsillar hypertrophy or exudate. Uvula midline. Airway patent. NECK: Trachea midline. No JVD or lymphadenopathy. Supple, nontender, no meningeal signs. CARDIOVASCULAR: Regular rate and rhythm without murmurs, gallops, or rubs. S1 and S2 no S3 or S4 RESPIRATORY: Clear to auscultation. Breath sounds equal bilaterally. No wheezes , rales, or rhonchi. GASTROINTESTINAL: Abdomen soft, non-tender, nondistended. No hepato-splenomegaly , or palpable masses. No guarding. MUSCULOSKELETAL: Extremities without clubbing, cyanosis, or edema. No joint tenderness, effusion, or edema noted. No calf tenderness. Negative Homans sign bilaterally. NEUROLOGICAL: Awake and alert. Cranial nerves II through XII intact. Motor and sensory grossly within normal limits. Five out of 5 muscle strength in all muscle groups. Normal speech. Insight and judgment is limited Mood and behavior is abnormal Laboratory Laboratory Tests Test 04/13/17 05:20 04/13/17 12:15 White Blood Count 6.2 Red Blood Count 3.66 Hemoglobin 10.7 Hematocrit 31.7 Mean Corpuscular Volume 86.6 Mean Corpuscular Hemoglobin 29.3 Mean Corpuscular Hemoglobin Concent 33.9 Red Cell Distribution Width 12.5 Platelet Count 152 Mean Platelet Volume 8.2 Neutrophils (%) (Auto) 72.1 Lymphocytes (%) (Auto) 19.0 Monocytes (%) (Auto) 5.7 Eosinophils (%) (Auto) 2.7 Basophils (%) (Auto) 0.5 Neutrophils # (Auto) 4.5 Lymphocytes # (Auto) 1.2 Monocytes # (Auto) 0.4 Eosinophils # (Auto) 0.2 Basophils # (Auto) 0.0 CBC Comment DIFF FINAL Differential Comment Prothrombin Time 10.5 Prothromb Time International Ratio 1.0 Activated Partial Thromboplast Time 28.1 Urine Color YELLOW Urine Turbidity HAZY Urine pH 6.0 Urine Specific Eddy 1.017 Urine Protein TRACE Urine Glucose (UA) NEG Urine Ketones NEG Urine Occult Blood NEG Urine Nitrite NEG Urine Bilirubin NEG Urine Urobilinogen LESS THAN 2.0 Urine Leukocyte Esterase TRACE Urine RBC 1 Urine WBC 2 Urine Squamous Epithelial Cells 9 Urine Mucus FEW Microscopic Urinalysis Comment CATH-CULT NOT IND Blood Urea Nitrogen 4 Creatinine 0.72 Random Glucose 93 Total Protein 6.4 Albumin 3.0 Calcium Level 8.5 Alkaline Phosphatase 57 Aspartate Amino Transf (AST/SGOT) 11 Alanine Aminotransferase (ALT/SGPT) 10 Total Bilirubin 0.3 Sodium Level 140 Potassium Level 3.5 Chloride Level 110 Carbon Dioxide Level 22.3 Anion Gap 8 Estimat Glomerular Filtration Rate 95 Lactic Acid Level 0.5 Total Creatine Kinase 34 Troponin I 0.02 Human Chorionic Gonadotropin, Quant LESS THAN 1 Urine Opiates Screen POS Urine Barbiturates Screen NEG Urine Amphetamines Screen NEG Urine Benzodiazepines Screen NEG Urine Cocaine Screen POS Urine Cannabinoids Screen NEG Date/Time Source Procedure Growth Status 04/13/17 12:25 Blood Peripheral Aerobic Blood Culture Pending Received 04/13/17 12:25 Blood Peripheral Anaerobic Blood Culture Pending Received 04/13/17 05:20 Nasal Washing Influenza Types A,B Antigen (ZION) - Final NEGATIVE FOR FLU A AND B ANTIGEN.... Complete Result Diagram: 04/13/17 0520 04/13/17 0520 Imaging Last Impressions Chest X-Ray 04/13/17 0510 Signed Impressions: Service Date/Time: Thursday, April 13, 2017 05:24 - CONCLUSION: No acute disease. Nehemiah Arguelles MD Lumbar Spine MRI 04/13/17 0000 Signed Impressions: Service Date/Time: Thursday, April 13, 2017 08:07 - CONCLUSION: 1. Mild broad-based disc bulges at L1-2, L4-5 and L5-S1 levels. 2. Minimal retrolisthesis L5 on S1. 3. No abscess or canal stenosis seen. Bjorn Lozano MD Head CT 04/13/17 0000 Signed Impressions: Service Date/Time: Thursday, April 13, 2017 05:36 - CONCLUSION: Normal examination. MD Dandy Wright VTE Risk Assessment Caprini VTE Risk Assessment: Mod/High Risk (score >= 2) Caprini Risk Assessment Model Point Value = 1 Point Value = 2 Point Value = 3 Point Value = 5 Age 41-60 Minor surgery BMI > 25 kg/m2 Swollen legs Varicose veins or History of unexplained or recurrent spontaneous Oral contraceptives or hormone replacement Sepsis (< 1 month) Serious lung disease, including pneumonia (< 1 month) Abnormal pulmonary function Acute myocardial infarction Congestive heart failure (< 1 month) History of inflammatory bowel disease Medical patient at bed rest Age 61-74 Arthroscopic surgery Major open surgery (> 45 min) Laparoscopic surgery (> 45 min) Malignancy Confined to bed (> 72 hours) Immobilizing plaster cast Central venous access Age >= 75 History of VTE Family history of VTE Factor V Leiden Prothrombin [id number] Lupus anticoagulant Anticardiolipin antibodies Elevated serum homocysteine Heparin-induced thrombocytopenia Other congenital or acquired thrombophilia Stroke (< 1 month) Elective arthroplasty Hip, pelvis, or leg fracture Acute spinal cord injury (< 1 month) Prophylaxis Regimen Total Risk Factor Score Risk Level Prophylaxis Regimen 0-1 Low Early ambulation 2 Moderate Order ONE of the following: *Sequential Compression Device (SCD) *Heparin 5000 units SQ BID 3-4 Higher Order ONE of the following medications: *Heparin 5000 units SQ TID *Enoxaparin/Lovenox 40 mg SQ daily (WT < 150 kg, CrCl > 30 mL/min) *Enoxaparin/Lovenox 30 mg SQ daily (WT < 150 kg, CrCl > 10-29 mL/min) *Enoxaparin/Lovenox 30 mg SQ BID (WT < 150 kg, CrCl > 30 mL/min) AND/OR *Sequential Compression Device (SCD) 5 or more Highest Order ONE of the following medications: *Heparin 5000 units SQ TID (Preferred with Epidurals) *Enoxaparin/Lovenox 40 mg SQ daily (WT < 150 kg, CrCl > 30 mL/min) *Enoxaparin/Lovenox 30 mg SQ daily (WT < 150 kg, CrCl > 10-29 mL/min) *Enoxaparin/Lovenox 30 mg SQ BID (WT < 150 kg, CrCl > 30 mL/min) AND *Sequential Compression Device (SCD) Assessment and Plan Assessment and Plan Sepsis Plan: Patient meets severe sepsis criteria with leukopenia, fever, tachycardia , tachypnea, and source of infection with IV drug use -Likely bacteremia -No physical exam findings of endocarditis at this time Patient started on prophylactic antibiotics: Vancomycin Zosyn Continue IV fluids Blood cultures drawn and pending Urine cultures drawn and pending Chest x-ray with no acute process Pain control as needed Ativan as needed for agitation (2) IV drug user Ativan as needed for agitation Recommend that she continue discontinuation of IV drug use of all types- including oral Dilaudid cocaine and crack and heroin and anything else she can inject into her vessels Tox screen positive for cocaine and opiates (3) Nausea & vomiting Continue Zofran as needed for nausea/vomiting (4) Back pain Likely musculoskeletal in nature -Morphine and oral Percocet as needed for pain MRI cervical spine and thoracic spine and lumbar spine negative for epidural abscess (5) Hypokalemia Replenish and repeat lab work -Monitor and replenish as needed -Magnesium level pending as well DVT and GI prophylaxis We'll get an echocardiogram to rule out endocarditis No epidural abscess is seen Await blood cultures Malignant Noncompliant since patient left AGAINST MEDICAL ADVICE A.m. labs Physical therapy and occupational therapy to eval and treat Smoking cessation recommended will use NicoDerm patch Code Status Full code Discussed Condition With RN and patient and ER physician Physician Certification 2 Midnight Certification Type: Admission for Inpatient Services Order for Inpatient Services The services are ordered in accordance with Medicare regulations or non- Medicare payer requirements, as applicable. In the case of services not specified as inpatient-only, they are appropriately provided as inpatient services in accordance with the 2-midnight benchmark. Estimated LOS (days): 2 days is the estimated time the patient will need to remain in the hospital, assuming treatment plan goals are met and no additional complications. Post-Hospital Plan: Not yet determined Jonas Jay DO Apr 13, 2017 13:42
[2017-04-13] MEDS ORDERED: NICOTINE 14 MG/24 HR PATCH T-DERMAL ONE (14:00)
[2017-04-13 17:29] LABS: TROPONIN I LESS THAN 0.02 NG/ML (0.02-0.05)
--- NOTE | 2017-04-14 00:18 | PD.AMA ---
Against Medical Advice Note Discharge Disposition: Against Medical Advice Pt Condition on Discharge: Guarded AMA Statement Patient Oralia Umaña has decided to leave the hospital against medical advice. This patient has the capacity to refuse care and understands the risks of leaving, including permanent disability and/or , and has had an opportunity to ask questions about her condition. The patient has been informed that she may return for care at any time, and follow up has been arranged/ advised. Oralia Pizano Apr 14, 2017 00:18
[2017-04-14] MEDS ORDERED: PHARMACY ORDERED LAB ONE (05:45)
[2017-04-14] MEDS ORDERED: NICOTINE 14 MG/24 HR PATCH T-DERMAL SCH (09:00)
[2017-04-14] MEDS ORDERED: REMOVE OLD PATCH T-DERMAL SCH (09:00)
--- NOTE | 2017-04-14 23:05 | EKG ---
Date Performed: 04/13/2017 Time Performed: 13:20:43 PTAGE: 32 years EKG: SINUS BRADYCARDIA INCOMPLETE RIGHT BUNDLE BRANCH BLOCK BORDERLINE ECG PREVIOUS TRACING : 04/13/2017 10.47 DOCTOR: Chin Villa Interpretating Date/Time 04/14/2017 23:03:14
--- NOTE | 2017-04-14 23:10 | EKG ---
Date Performed: 04/13/2017 Time Performed: 10:47:25 PTAGE: 32 years EKG: Sinus rhythm INCOMPLETE RIGHT BUNDLE BRANCH BLOCK NONSPECIFIC T-WAVE ABNORMALITY BORDERLINE ECG PREVIOUS TRACING : 04/13/2017 05.24 DOCTOR: Chin Villa Interpretating Date/Time 04/14/2017 23:06:29
== END 2017-04-13 23:51 | disposition left against medical advice (07) | DRG 872 ==
LOC: NEPE 04:42 → NEDA 08:15 → N05B 09:29
PROVIDERS: ADMIT Hospitalist; ATTEND Hospitalist
DX: A41.9 Sepsis, unspecified organism (principal); E87.6 Hypokalemia; F19.90 Other psychoactive substance use, unspecified, uncomplicated; R11.2 Nausea with vomiting, unspecified; M54.9 Dorsalgia, unspecified; Z91.19 Patient's noncompliance with other medical treatment and regimen; F17.210 Nicotine dependence, cigarettes, uncomplicated
CPT/HCPCS: 70450; 71045; 72158; 80053; 80307; 81001; 82550; 83605; 84484; 84702; 85025; 85610; 85730; 87040; 87804; 93005; 96361; 96365; 96375; A9579; J2543; J2765; J3370; J7030; J7050